=== PATIENT | male | born 1950 | race American Indian/Alaskan Native ===

== ENCOUNTER 2021-05-13 18:33 | Inpatient (IN) | payer MEDICARE ==
[2021-05-13] MEDS ORDERED: METOCLOPRAMIDE 10 MG/2 ML INJ IV ONE (19:22)
[2021-05-13] MEDS ORDERED: dexAMETHasone 4 MG/ML VIAL IV ONE (19:22)
--- NOTE | 2021-05-13 19:25 | Event Note ---
Date: 05/13/21 The patient was evaluated in the emergency department for symptoms described in the history of present illness. He/she was evaluated in the context of the global COVID-19 pandemic, which necessitated consideration that the patient might be at risk for infection with the virus that causes COVID-19. Institutional protocols and algorithms that pertain to the evaluation of patients at risk for COVID-19 are in a state of rapid change based on information released by regulatory bodies including the CDC and federal and state organizations. These policies and algorithms were followed during the patient's care in the emergency department. Please note that these policies, procedures and recommendations changed on a rapid basis. Medical screening examination note: The patient is a 71-year-old gentleman, who reports that he is vaccinated against COVID-19, who was referred to the emergency room by local urgent care center for hiccups and hypoxia. The patient denies physical pain. He is not quite sure as to the details of his past medical history. Obtain appropriate laboratory studies, EKG, chest x-ray of the chest, initiate isolation, start Reglan Decadron therapy empirically. Reassess after initial data points, patient to have detailed history and physical performed by provider
--- NOTE | 2021-05-13 19:53 | XRay Report ---
CHEST 2 VIEWS INDICATION / CLINICAL INFORMATION: Dyspnea. COMPARISON: None available. FINDINGS: SUPPORT DEVICES: None. HEART / MEDIASTINUM: No significant abnormality. LUNGS / PLEURA: Multiple peripheral patchy airspace opacities. No pneumothorax. ADDITIONAL FINDINGS: No significant additional findings. IMPRESSION: 1. Multiple peripheral patchy airspace opacities which can be seen with Covid pneumonia. Signer Name: Isai Pickett DO Signed: 05/13/2021 7:49 PM Workstation Name: [id number]
[2021-05-13 19:59] LABS: Basophils % (Auto) 0.3 % (0.0-1.8); Hematocrit 42.8 % (35.5-45.6); Hemoglobin 14.5 gm/dl (11.8-15.2); Lymphocytes # (Auto) 0.5 K/mm3 (1.2-5.4); Lymphocytes % (Auto) 11.1 % (13.4-35.0); Mean Corpuscular HGB Conc 34 % (32-34); Mean Corpuscular Volume 84 fl (84-94); Monocytes # (Auto) 0.6 K/mm3 (0.0-0.8); Monocytes % (Auto) 12.5 % (0.0-7.3); Platelet Count 109 K/mm3 (140-440); Red Blood Count 5.08 M/mm3 (3.65-5.03); Red Cell Distribution Width 14.4 % (13.2-15.2)
[2021-05-13 20:08] LABS: INR 0.96 (0.87-1.13)
[2021-05-13 20:28] LABS: Alanine Aminotransferase 82 units/L (7-56); Albumin 3.4 g/dL (3.9-5); BUN/Creatinine Ratio 16; Blood Urea Nitrogen 13 mg/dL (9-20); Calcium 9.1 mg/dL (8.4-10.2); Hemolysis Index 10
[2021-05-13] MEDS ORDERED: SODIUM CHLORIDE 0.9% 1000 ML 1,000 ML IV ONE (22:22)
[2021-05-13] MEDS ORDERED: cefTRIAXone/NS 1 GM/50 ML 1 GM/50 ML BAG IV ONE (22:23)
[2021-05-13] MEDS ORDERED: AZITHROMYCIN/NS 500 MG/250 ML 500 MG/250 ML BAG IV ONE (22:23)
[2021-05-13] MEDS ORDERED: ACETAMINOPHEN 500 MG TAB PO ONE (22:24)
--- NOTE | 2021-05-13 22:28 | Emergency Department Report ---
ED Shortness of Breath HPI - General Chief Complaint: Dyspnea/Respdistress Stated Complaint: OXYGEN Time Seen by Provider: 05/13/21 22:22 Source: patient Mode of arrival: Ambulatory Limitations: No Limitations - History of Present Illness Initial Comments: Patient is 71 years old male with history of hypertension. Patient presented to the ER after he was seen in urgent care for evaluation of hypoxia and shortness of breath. Patient stated that symptoms been going on for 2 to 3 days. Patient found to be febrile with temperature of 101. Patient stated that he received his first dose of moderate vaccine on May 09 approximately 4 days ago. 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 Patient denied any nausea or vomiting but he is complaining of hiccups. Patient found to be hypoxic with an oxygen saturation of 89% on room air improved to 94% on 3 L. MD Complaint: shortness of breath, cough -: days(s) (2) Context: recent URI - Related Data Allergies Allergy/AdvReac Type Severity Reaction Status Date / Time No Known Allergies Allergy Unverified 05/13/21 19:22 ED Review of Systems ROS: Stated complaint: OXYGEN Other details as noted in HPI Comment: All other systems reviewed and negative Constitutional: chills, fever Respiratory: cough, shortness of breath, SOB with exertion, SOB at rest Cardiovascular: denies: chest pain, palpitations Gastrointestinal: denies: abdominal pain, nausea, vomiting, diarrhea, constipation, hematemesis, melena Musculoskeletal: denies: back pain Neurological: denies: headache, weakness, numbness, paresthesias, confusion, abnormal gait ED Past Medical Hx - Past Medical History Previous Medical History?: No - Surgical History Past Surgical History?: No ED Physical Exam - General Limitations: No Limitations General appearance: alert, in no apparent distress - Head Head exam: Present: atraumatic, normocephalic, normal inspection - Eye Eye exam: Present: normal appearance - ENT ENT exam: Present: mucous membranes dry - Neck Neck exam: Present: normal inspection, full ROM. Absent: tenderness, menin gismus - Respiratory Respiratory exam: Present: rales. Absent: respiratory distress, accessory muscle use, decreased breath sounds, prolonged expiratory - Cardiovascular Cardiovascular Exam: Present: regular rate, normal rhythm, normal heart sounds - GI/Abdominal GI/Abdominal exam: Present: soft, normal bowel sounds. Absent: distended, tenderness, guarding, rebound, rigid, mass, bruit, pulsatile mass, hernia - Extremities Exam Extremities exam: Present: normal inspection, full ROM, normal capillary refill. Absent: tenderness, pedal edema, joint swelling, calf tenderness - Back Exam Back exam: Present: normal inspection, full ROM. Absent: CVA tenderness (R), CVA tenderness (L), muscle spasm, paraspinal tenderness, vertebral tenderness - Neurological Exam Neurological exam: Present: alert, oriented X3, CN II-XII intact, normal gait, reflexes normal. Absent: motor sensory deficit - Psychiatric Psychiatric exam: Present: normal mood - Skin Skin exam: Present: warm, intact, normal color ED Course Vital Signs 05/13/21 19:25 Temperature 101 F H Pulse Rate 91 H Respiratory 16 Rate Blood Pressure 140/91 [Right] O2 Sat by Pulse 94 Oximetry ED Medical Decision Making - Lab Data Result diagrams: 05/13/21 19:28 05/13/21 19:28 - Radiology Data Radiology results: report reviewed - Medical Decision Making Patient is 71 years old male with history of hypertension. Patient presented to the ER after he was seen in urgent care for evaluation of hypoxia and shortness of breath. Patient stated that symptoms been going on for 2 to 3 days. Patient found to be febrile with temperature of 101. Patient stated that he received his first dose of moderate vaccine on May 09 approximately 4 days ago. 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 Patient denied any nausea or vomiting but he is complaining of hiccups. Patient found to be hypoxic with an oxygen saturation of 89% on room air improved to 94% on 3 L Chest x-ray showed bilateral infiltrate concerning for Covid 19 pneumonia. Labs reviewed and is unremarkable except for elevated COVID-19 markers. Patient received Rocephin, Zithromax, Decadron and normal saline. I discussed the patient with Dr. Smith, he agreed to admit the patient to medical service for further management. Critical Care Time: Yes Critical care time in (mins) excluding proc time.: 30 Critical care attestation.: If time is entered above; I have spent that time in minutes in the direct care of this critically ill patient, excluding procedure time. ED Disposition Clinical Impression: Acute respiratory failure with hypoxia, Bilateral pneumonia, Suspected COVID-19 virus infection Disposition: ADMITTED INPATIENT Is pt being admited?: Yes Condition: Stable Instructions: Bacterial Pneumonia (ED)
[2021-05-13] MEDS ORDERED: ACETAMINOPHEN 325 MG TAB PO PRN (22:39)
[2021-05-13] MEDS ORDERED: ALBUTEROL 2.5 MG/3 ML NEBU IH PRN (22:39)
--- NOTE | 2021-05-13 22:47 | History and Physical Report ---
History of Present Illness Date of examination: 05/13/21 Date of admission: 05/13/21 Chief complaint: Shortness of breath History of present illness: 71 years old male with history of hypertension was brought to the emergency room from urgent care for evaluation of hypoxia and shortness of breath. Patient complained of shortness of breath for 2 to 3 days. Patient found to be febrile with temperature of 101. Patient stated that he received his first dose of mo derate vaccine on May 09 approximately 4 days ago. 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 Patient denied any nausea or vomiting but he is complaining of hiccups. Patient found to be hypoxic with an oxygen saturation of 89% on room air improved to 94% on 3 L. In the emergency room patient chest x-ray shows multi pole peripheral patchy airspace opacities which can be seen with Covid pneumonia. Going to admit the patient with diagnosis of Covid infection and Covid pneumonia. We consulted infectious disease for evaluation Med rec is not available at this time. Advance discharge process is initiated Past History Past Medical History: hypertension Medications and Allergies Allergies Allergy/AdvReac Type Severity Reaction Status Date / Time No Known Allergies Allergy Unverified 05/13/21 19:22 Active Meds: Active Medications Sodium Chloride (Nacl 0.9% 1000 Ml) 1,000 mls @ 250 mls/hr IV ONCE ONE Stop: 05/14/21 02:21 Azithromycin (Zithromax/Ns) 500 mg in 250 mls @ 250 mls/hr IV ONCE ONE; Protocol Stop: 05/13/21 23:22 Ceftriaxone Sodium (Rocephin/Ns 1 Gm/50 Ml) 1 gm in 50 mls @ 100 mls/hr IV ONCE ONE; Protocol Stop: 05/13/21 22:52 Review of Systems All systems: negative Cardiovascular: shortness of breath, dyspnea on exertion Respiratory: cough, shortness of breath, dyspnea on exertion Exam - Constitutional Vitals: Temp Pulse Resp BP Pulse Ox 101 F H 91 H 16 140/91 94 05/13/21 19:25 05/13/21 19:25 05/13/21 19:25 05/13/21 19:25 05/13/21 19:25 General appearance: Present: no acute distress, well-nourished - EENT Eyes: Present: PERRL ENT: hearing intact, clear oral mucosa - Neck Neck: Present: supple, normal ROM - Respiratory Respiratory effort: normal Respiratory: bilateral: diminished - Cardiovascular Heart Sounds: Present: S1 & S2. Absent: rub, click - Extremities Extremities: pulses symmetrical, No edema Peripheral Pulses: within normal limits - Abdominal General gastrointestinal: Present: soft, non-tender, non-distended, normal bowel sounds Male genitourinary: Present: normal - Integumentary Integumentary: Present: clear, warm, dry - Musculoskeletal Musculoskeletal: gait normal, strength equal bilaterally - Psychiatric Psychiatric: appropriate mood/affect, intact judgment & insight - Neurologic Neurologic: CNII-XII intact, moves all extremities HEART Score - HEART Score Troponin: Troponin T < 0.010 ng/mL (0.00-0.029) 05/13/21 19:28 Results - Labs CBC & Chem 7: 05/13/21 19:28 05/13/21 19:28 Labs: Laboratory Last Values WBC 4.6 K/mm3 (4.5-11.0) 05/13/21 19: RBC 5.08 M/mm3 (3.65-5.03) H 05/13/21 19:28 Hgb 14.5 gm/dl (11.8-15.2) 05/13/21 19: Hct 42.8 % (35.5-45.6) 05/13/21 19: MCV 84 fl (84-94) 05/13/21 19: MCH 29 pg (28-32) 05/13/21 19:28 MCHC 34 % (32-34) 05/13/21 19: RDW 14.4 % (13.2-15.2) 05/13/21 19:28 Plt Count 109 K/mm3 (140-440) L 05/13/21 19:28 Lymph % (Auto) 11.1 % (13.4-35.0) L 05/13/21 19: [place] % (Auto) 12.5 % (0.0-7.3) H 05/13/21 19:28 Eos % (Auto) 0.0 % (0.0-4.3) 05/13/21 19: Baso % (Auto) 0.3 % (0.0-1.8) 05/13/21 19: Lymph # (Auto) 0.5 K/mm3 (1.2-5.4) L 05/13/21 19:28 [place] # (Auto) 0.6 K/mm3 (0.0-0.8) 05/13/21 19: Eos # (Auto) 0.0 K/mm3 (0.0-0.4) 05/13/21 19:28 Baso # (Auto) 0.0 K/mm3 (0.0-0.1) 05/13/21 19: Seg Neutrophils % 76.1 % (40.0-70.0) H 05/13/21 19:28 Seg Neutrophils # 3.5 K/mm3 (1.8-7.7) 05/13/21 19: PT 13.3 Sec. (12.2-14.9) 05/13/21: INR 0.96 (0.87-1.13) 05/13/21 19:28 D-Dimer 966.69 ng/mlDDU (0-234) H 05/13/21 19:28 Sodium 134 mmol/L (137-145) L 05/13/21 19:28 Potassium 3.7 mmol/L (3.6-5.0) 05/13/21 19: Chloride 97.9 mmol/L (98-107) L 05/13/21 19: Carbon Dioxide 30 mmol/L (22-30) 05/13/21 19: Anion Gap 10 mmol/L 05/13/21 19: BUN 13 mg/dL (9-20) 05/13/21 19: Creatinine 0.8 mg/dL (0.8-1.3) 05/13/21 19: Estimated GFR > 60 ml/min 05/13/21 19:28 BUN/Creatinine Ratio 16 % 05/13/21 19: Glucose 132 mg/dL (75-100) H 05/13/21 19:28 Lactic Acid 1.40 mmol/L (0.7-2.0) 05/13/21 19: Calcium 9.1 mg/dL (8.4-10.2) 05/13/21 19: Magnesium 2.20 mg/dL (1.7-2.3) 05/13/21 19:28 Ferritin 1812.0 ng/mL (30.0-300.0) H 05/13/21 19:28 Total Bilirubin 0.60 mg/dL (0.1-1.2) 05/13/21 19:28 AST 102 units/L (5-40) H 05/13/21 19:28 ALT 82 units/L (7-56) H 05/13/21 19:28 Alkaline Phosphatase 70 units/L (35-129) 05/13/21 19:28 Lactate Dehydrogenase 500 units/L (91-180) H 05/13/21 19:28 Total Creatine Kinase 312 units/L (55-170) H 05/13/21 19:28 Troponin T < 0.010 ng/mL (0.00-0.029) 05/13/21 19:28 C-Reactive Protein 9.50 mg/dL (0.00-1.30) H 05/13/21 19:28 Total Protein 7.9 g/dL (6.3-8.2) 05/13/21 19:28 Albumin 3.4 g/dL (3.9-5) L 05/13/21 19:28 Albumin/Globulin Ratio 0.8 % 05/13/21 19:28 - Imaging and Cardiology Chest x-ray: report reviewed Assessment and Plan VTE prophylaxis?: Chemical Plan of care discussed with patient/family: Yes - Patient Problems (1) Acute respiratory failure with hypoxia Status: Acute Plan to address problem: Admit the patient to the medical telemetry. Oxygen per nasal cannula 3 L/min. DuoNeb by nebulizer every 4 hours. Dexamethasone 6 mg IV daily. Rocephin 2 g IV daily and Zithromax 500 mg IV daily. We do the blood culture and sputum culture. We will follow Covid PCR and Covid inflammatory marker. Reconsult infectious disease for evaluation. Consult pulmonary if needed (2) Bilateral pneumonia Status: Acute Plan to address problem: Oxygen per nasal cannula 3 L/min. DuoNeb by nebulizer every 4 hours. Dexamethasone 6 mg IV daily. Rocephin 2 g IV daily and Zithromax 500 mg IV daily. We do the blood culture and sputum culture. Recheck CBC BMP in the morning (3) Suspected COVID-19 virus infection Status: Acute Plan to address problem: Oxygen per nasal cannula 3 L/min. DuoNeb by nebulizer every 4 hours. Dexamethasone 6 mg IV daily. Rocephin 2 g IV daily and Zithromax 500 mg IV daily. We do the blood culture and sputum culture. We will follow Covid PCR and Covid inflammatory marker. Reconsult infectious disease for evaluation. Consult pulmonary if needed (4) Hypertension Status: Acute Plan to address problem: Hydralazine 10 mg IV every 6 hours as needed. We will monitor the blood pressure closely (5) DVT prophylaxis Status: Acute Plan to address problem: Heparin 5000 units subcu every 8 hours for DVT prophylaxis. Pepcid 20 mg p.o. twice daily for GI prophylaxis. Patient is a full code
[2021-05-14 04:53] LABS: BUN/Creatinine Ratio 13; Blood Urea Nitrogen 12 mg/dL (9-20); Calcium 8.5 mg/dL (8.4-10.2); Hemolysis Index 4
[2021-05-14] MEDS: IPRATROPIUM/ALBUTEROL SULFATE 3 ML AMPUL.NEB IH SCH ×4 (05:57→22:47)
[2021-05-14] MEDS: HEPARIN 5,000 UNIT/1 ML VIAL SUB-Q SCH ×2 (07:05→22:50)
--- NOTE | 2021-05-14 08:49 | Consultation ---
History of Present Illness - Reason for Consult Consult date: 05/14/21 covid - History of Present Illness 71-year-old male with history of hypertension, obesity, admitted on 05/13/2021 secondary to 3-day history of cough, fever, chills, malaise, hiccups and shortness of breath. Patient was evaluated at an urgent care facility was found hypoxic. Of note, patient received first dose of Moderna vaccine on 05/09/2021. Patient is exposed to many people at work. On arrival, temperature 101, HR 91, RR 16, O2 sat 94%, 140/91. Platelets 109. D-dimer 966. Ferritin 8012. CRP 9.5. AST 102. ALT 82. Dropped to 89% on room air, placed on 3 L. Chest x-ray with multifocal peripheral patchy airspace disease. Review of Systems: reviewed ED and H&P notes. Review of system deferred to minimize COVID-19 transmission. Past History Past Medical History: hypertension Medications and Allergies Allergies Allergy/AdvReac Type Severity Reaction Status Date / Time No Known Allergies Allergy Unverified 05/13/21 19:22 Active Meds: Active Medications Acetaminophen (Acetaminophen 325 Mg Tab) 650 mg PO Q4H PRN PRN Reason: Pain MILD(1-3)/Fever >100.5/TYLER Albuterol (Albuterol 2.5 Mg/3 Ml Nebu) 2.5 mg IH Q4HRT PRN PRN Reason: Shortness Of Breath Albuterol/Ipratropium (Ipratropium/Albuterol Sulfate 3 Ml Ampul.Neb) 1 ampul IH Q6HRT [facility] Last Admin: 05/14/21 05:57 Dose: Not Given Documented by: Dexamethasone (Dexamethasone 4 Mg/Ml Vial) 6 mg IV DAILY [facility] Stop: 05/23/21 10:01 Famotidine (Famotidine 20 Mg Tab) 20 mg PO BID [facility] Heparin Sodium (Porcine) (Heparin 5,000 Unit/1 Ml Vial) 5,000 unit SUB-Q Q8HR [facility] Last Admin: 05/14/21 07:05 Dose: 5,000 unit Documented by: Hydralazine HCl (Hydralazine 20 Mg/1 Ml Inj) 10 mg IV Q6H PRN PRN Reason: Blood Pressure Hydromorphone HCl (Hydromorphone 1 Mg/1 Ml Inj) 0.5 mg IV Q3H PRN PRN Reason: Pain , Severe (7-10) Ceftriaxone Sodium (Rocephin/Ns 2 Gm/100 Ml) 2 gm in 100 mls @ 200 mls/hr IV Q24HR [facility]; Protocol Stop: 05/17/21 10:29 Azithromycin (Zithromax/Ns) 500 mg in 250 mls @ 250 mls/hr IV Q24HR [facility]; Protocol Stop: 05/17/21 10:59 Ondansetron HCl (Ondansetron 4 Mg/2 Ml Inj) 4 mg IV Q8H PRN PRN Reason: Nausea And Vomiting Oxycodone/Acetaminophen (Oxycodone /Acetaminophen 5-325mg Tab) 1 tab PO Q6H PRN PRN Reason: Pain, Moderate (4-6) Physical Examination - Physical Exam Narrative exam: Physical exam deferred to minimize COVID-19 transmission during pandemic. - Constitutional Vitals: Vital Signs Temp Pulse Resp BP Pulse Ox 101.0 F H 85 23 164/86 91 05/13/21 19:25 05/14/21 07:45 05/14/21 07:45 05/14/21 08:15 05/14/21 08:15 Temperature -Last 24 Hours Temperature 101.0 F Temperature 101 F Results - Labs CBC & Chem 7: 05/13/21 19:28 05/14/21 04:14 Labs: Abnormal lab results 05/13/21 05/13/21 05/13/21 Range/Units 19:28 19:28 19:28 RBC 5.08 H (3.65-5.03) M/mm3 Plt Count 109 L (140-440) K/mm3 Lymph % (Auto) 11.1 L (13.4-35.0) % [place] % (Auto) 12.5 H (0.0-7.3) % Lymph # (Auto) 0.5 L (1.2-5.4) K/mm3 Seg Neutrophils % 76.1 H (40.0-70.0) % D-Dimer 966.69 H (0-234) ng/mlDDU Sodium 134 L (137-145) mmol/L Potassium (3.6-5.0) mmol/L Chloride 97.9 L (98-107) mmol/L Glucose 132 H (75-100) mg/dL Ferritin (30.0-300.0) ng/mL AST 102 H (5-40) units/L ALT 82 H (7-56) units/L Lactate Dehydrogenase 500 H (91-180) units/L Total Creatine Kinase 312 H (55-170) units/L C-Reactive Protein 9.50 H (0.00-1.30) mg/dL Albumin 3.4 L (3.9-5) g/dL 05/13/21 05/14/21 Range/Units 19:28 04:14 RBC (3.65-5.03) M/mm3 Plt Count (140-440) K/mm3 Lymph % (Auto) (13.4-35.0) % [place] % (Auto) (0.0-7.3) % Lymph # (Auto) (1.2-5.4) K/mm3 Seg Neutrophils % (40.0-70.0) % D-Dimer (0-234) ng/mlDDU Sodium (137-145) mmol/L Potassium 3.5 L (3.6-5.0) mmol/L Chloride (98-107) mmol/L Glucose 133 H (75-100) mg/dL Ferritin 1812.0 H (30.0-300.0) ng/mL AST (5-40) units/L ALT (7-56) units/L Lactate Dehydrogenase (91-180) units/L Total Creatine Kinase (55-170) units/L C-Reactive Protein (0.00-1.30) mg/dL Albumin (3.9-5) g/dL Assessment and Plan Cultures: SARS CoV2 PCR pending Assessment: 71-year-old male with history of hypertension, obesity, admitted on 05/13/2021 secondary to 3-day history of cough, fever, chills, malaise, hiccups and shortness of breath, received first dose of Moderna vaccine on 05/09/2021: #Sepsis: Present on admission with fever, tachycardia, hypoxia, likely secondary to bilateral pneumonia. #Suspect COVID pneumonia: SARS PCR pending. CXR with multifocal bilateral pneumonia. Infllammatory markers elevated. D-dimer 966. Ferritin 8012. CRP 9 .5. #Acute hypoxemic respiratory failure: Sats Dropped to 89% on room air, placed on 3 L. #Elevated LFTs: from COVID, AST 102. ALT 82. Recommendations: -Follow-up SARS-CoV-2 PCR -Continue Dexamethasone 6 mg IV/PO daily for 10 days -Once SARS-CoV-2 PCR positive will consider starting Remdesivir for 5 days if patient is on oxygen supplementation -Monitor inflammatory markers - ferritin, Ddimer, CRP, LDH -Check procalcitonin -Continue anticoagulation per System Protocol -Prone positioning as possible -Stop ceftriaxone and azithromycin, if procalcitonin <0.25 ng/mL All laboratory, cultures and imaging were reviewed. Will follow Lilia Chau MD Infectious Diseases Physical Chemist [facility] M [phone] O [phone]
[2021-05-14] MEDS ORDERED: cefTRIAXone/NS 2 GM/100 ML 2 GM/100 ML BAG IV SCH (10:00)
[2021-05-14] MEDS ORDERED: AZITHROMYCIN/NS 500 MG/250 ML 500 MG/250 ML BAG IV SCH (10:00)
[2021-05-14] MEDS: dexAMETHasone 4 MG/ML VIAL IV SCH (11:15)
[2021-05-14] MEDS: FAMOTIDINE 20 MG TAB PO SCH ×2 (11:16→22:49)
--- NOTE | 2021-05-14 14:25 | Progress Note ---
Assessment and Plan Assessment and plan: -- Acute respiratory failure with hypoxia Status: Acute Patient is on supplemental oxygen per nasal cannula 3 L-4 /min. Continue DuoNeb by nebulizer every 4 hours. Dexamethasone 6 mg IV daily. Rocephin 2 g IV daily and Zithromax 500 mg IV daily. Follow blood cultures Covid PCR test pending and elevated Covid inflammatory marker. Pulmonary following --Bilateral pneumonia Status: Acute Possible community-acquired pneumonia versus Covid pneumonia Empiric antibiotics Rocephin and Zithromax, check procalcitonin levels If normal DC antibiotics, follow cultures --PUI/ suspected COVID-19 virus infection Status: Acute Contact and droplet isolation, dexamethasone 6 mg IV daily. Follow springer PCR test report , check inflammatory markers ID evaluation noted, remdesivir if COVID-19 test is positive Oxygen titrate , and wean as needed Home O2 evaluation prior to discharge Prone position as needed, pulmonary as needed -- Hypertension/moderate control Status: Acute Continue current antihypertensives As needed hydralazine --Obesity; BMI 38.4 Status: Chronic Patient needs diet modification, lifestyle changes, exercise as tolerated and weight reduction When medically stable --DVT prophylaxis; Status: Acute Subcu Heparin 5000 units subcu every 8 hours . We will closely monitor the patient and adjust management as needed Licensed Occupational Therapy Assistant recommendations noted and appreciated Plan of care reviewed with the patient and his nurse Brief history and daily hospital course: 74-year-old -[place] male patient was admitted with shortness of breath, hypoxic respiratory failure Requiring supplemental oxygen, high suspicion for COVID-19: A PCR test is pending 05/17/2021; Follow springer PCR test 38 oxygen to more than 90% Wean as toleratedID following Consider pulmonary evaluation if needed History Interval history: I have seen and examined the patient this morning in ER room 25 awaiting room assignment Isolation precautions PPE protocols followed Patient is in mild distress on 4 L of nasal cannula oxygen Complains of generalized weakness and shortness of breath Hospitalist Physical - Constitutional Vitals: Temp Pulse Resp BP Pulse Ox 101.0 F H 73 31 H 122/73 93 05/13/21 19:25 05/14/21 13:15 05/14/21 13:15 05/14/21 13:15 05/14/21 13:15 General appearance: Present: mild distress, well-nourished, obese - EENT Eyes: Present: PERRL, EOM intact - Neck Neck: Present: supple, normal ROM - Respiratory Respiratory effort: other (Mild hypoxia) Respiratory: bilateral: diminished, rhonchi, negative: rales, wheezing - Cardiovascular Rhythm: regular Heart Sounds: Present: S1 & S2 - Extremities Extremities: no ischemia, No edema - Abdominal General gastrointestinal: soft, non-tender, non-distended, normal bowel sounds - Integumentary Integumentary: Present: clear, warm - Psychiatric Psychiatric: appropriate mood/affect, cooperative - Neurologic Neurologic: CNII-XII intact, moves all extremities HEART Score - HEART Score Troponin: Troponin T < 0.010 ng/mL (0.00-0.029) 05/13/21 19:28 Results - Labs CBC & Chem 7: 05/13/21 19:28 05/14/21 04:14 Labs: Laboratory Last Values WBC 4.6 K/mm3 (4.5-11.0) 05/13/21 19: RBC 5.08 M/mm3 (3.65-5.03) H 05/13/21 19:28 Hgb 14.5 gm/dl (11.8-15.2) 05/13/21 19:28 Hct 42.8 % (35.5-45.6) 05/13/21 19:28 MCV 84 fl (84-94) 05/13/21 19:28 MCH 29 pg (28-32) 05/13/21 19:28 MCHC 34 % (32-34) 05/13/21 19:28 RDW 14.4 % (13.2-15.2) 05/13/21 19:28 Plt Count 109 K/mm3 (140-440) L 05/13/21 19:28 Lymph % (Auto) 11.1 % (13.4-35.0) L 05/13/21 19:28 [place] % (Auto) 12.5 % (0.0-7.3) H 05/13/21 19:28 Eos % (Auto) 0.0 % (0.0-4.3) 05/13/21 19:28 Baso % (Auto) 0.3 % (0.0-1.8) 05/13/21 19:28 Lymph # (Auto) 0.5 K/mm3 (1.2-5.4) L 05/13/21 19:28 [place] # (Auto) 0.6 K/mm3 (0.0-0.8) 05/13/21 19:28 Eos # (Auto) 0.0 K/mm3 (0.0-0.4) 05/13/21 19:28 Baso # (Auto) 0.0 K/mm3 (0.0-0.1) 05/13/21 19:28 Seg Neutrophils % 76.1 % (40.0-70.0) H 05/13/21 19:28 Seg Neutrophils # 3.5 K/mm3 (1.8-7.7) 05/13/21 19:28 PT 13.3 Sec. (12.2-14.9) 05/13/21 19: INR 0.96 (0.87-1.13) 05/13/21 19:28 D-Dimer 966.69 ng/mlDDU (0-234) H 05/13/21 19:28 Sodium 137 mmol/L (137-145) 05/14/21 04:14 Potassium 3.5 mmol/L (3.6-5.0) L 05/14/21 04:14 Chloride 99.7 mmol/L (98-107) 05/14/21 04:14 Carbon Dioxide 24 mmol/L (22-30) 05/14/21 04:14 Anion Gap 17 mmol/L 05/14/21 04:14 BUN 12 mg/dL (9-20) 05/14/21 04:14 Creatinine 0.9 mg/dL (0.8-1.3) 05/14/21 04:14 Estimated GFR > 60 ml/min 05/14/21 04:14 BUN/Creatinine Ratio 13 % 05/14/21 04:14 Glucose 133 mg/dL (75-100) H 05/14/21 04:14 Lactic Acid 1.40 mmol/L (0.7-2.0) 05/13/21 19:28 Calcium 8.5 mg/dL (8.4-10.2) 05/14/21 04:14 Magnesium 2.20 mg/dL (1.7-2.3) 05/13/21 19:28 Ferritin 1812.0 ng/mL (30.0-300.0) H 05/13/21 19:28 Total Bilirubin 0.60 mg/dL (0.1-1.2) 05/13/21 19:28 AST 102 units/L (5-40) H 05/13/21 19:28 ALT 82 units/L (7-56) H 05/13/21 19:28 Alkaline Phosphatase 70 units/L (35-129) 05/13/21 19:28 Lactate Dehydrogenase 500 units/L (91-180) H 05/13/21 19:28 Total Creatine Kinase 312 units/L (55-170) H 05/13/21 19:28 Troponin T < 0.010 ng/mL (0.00-0.029) 05/13/21 19:28 C-Reactive Protein 9.50 mg/dL (0.00-1.30) H 05/13/21 19:28 Total Protein 7.9 g/dL (6.3-8.2) 05/13/21 19:28 Albumin 3.4 g/dL (3.9-5) L 05/13/21 19:28 Albumin/Globulin Ratio 0.8 % 05/13/21 19:28 Procalcitonin < 0.05 ng/mL (<0.15) 05/13/21 19:28 Active Medications - Current Medications Current Medications: Generic Name Dose Route Start Last Admin Trade Name Freq PRN Reason Stop Dose Admin Acetaminophen 650 mg 05/13/21 22:39 05/14/21 11:16 Acetaminophen 325 Mg Tab PO 650 mg Q4H PRN Administration Pain MILD(1-3)/Fever >100.5/TYLER Albuterol 2.5 mg 05/13/21 22:39 Albuterol 2.5 Mg/3 Ml Nebu IH Q4HRT PRN Shortness Of Breath Albuterol/Ipratropium 1 ampul 05/14/21 02:00 05/14/21 11:15 Ipratropium/Albuterol Sulfate 3 Ml Ampul.Neb IH Not Given Q6HRT EVELYN Dexamethasone 6 mg 05/14/21 10:00 05/14/21 11:15 Dexamethasone 4 Mg/Ml Vial IV 05/23/21 10:01 6 mg DAILY EVELYN Administration Famotidine 20 mg 05/14/21 10:00 05/14/21 11:16 Famotidine 20 Mg Tab PO 20 mg BID EVELYN Administration Heparin Sodium (Porcine) 5,000 unit 05/14/21 06:00 05/14/21 07:05 Heparin 5,000 Unit/1 Ml Vial SUB-Q 5,000 unit Q8HR EVELYN Administration Hydralazine HCl 10 mg 05/13/21 22:42 Hydralazine 20 Mg/1 Ml Inj IV Q6H PRN Blood Pressure Hydromorphone HCl 0.5 mg 05/13/21 22:39 Hydromorphone 1 Mg/1 Ml Inj IV Q3H PRN Pain , Severe (7-10) Ceftriaxone Sodium 2 gm in 100 mls @ 200 mls/hr 05/14/21 10:00 05/14/21 11:16 Rocephin/Ns 2 Gm/100 Ml IV 05/17/21 10:29 200 mls/hr Q24HR EVELYN Administration Protocol Azithromycin 500 mg in 250 mls @ 250 mls/hr 05/14/21 10:00 05/14/21 11:16 Zithromax/Ns IV 05/17/21 10:59 250 mls/hr Q24HR EVELYN Administration Protocol Ondansetron HCl 4 mg 05/13/21 22:39 Ondansetron 4 Mg/2 Ml Inj IV Q8H PRN Nausea And Vomiting Oxycodone/Acetaminophen 1 tab 05/13/21 22:39 Oxycodone /Acetaminophen 5-325mg Tab PO Q6H PRN Pain, Moderate (4-6)
[2021-05-14] MEDS ORDERED: POTASSIUM CHLORIDE ER 10 MEQ TAB PO ONE (20:00)
--- NOTE | 2021-05-14 20:20 | Vascular Lab Report ---
DUPLEX DOPPLER LOWER EXTREMITY VEINS, BILATERAL INDICATION / CLINICAL INFORMATION: Covid/elevated D-dimers/hypoxia/rule out DVT. TECHNIQUE: Duplex doppler imaging was performed through the veins of both lower extremities using venous zhou salvador and other maneuvers. COMPARISON: None available. FINDINGS: RIGHT COMMON FEMORAL VEIN: Negative. RIGHT FEMORAL VEIN: Negative. RIGHT POPLITEAL VEIN: Negative. RIGHT CALF VEINS: Negative. LEFT COMMON FEMORAL VEIN: Negative. LEFT FEMORAL VEIN: Negative. LEFT POPLITEAL VEIN: Negative. LEFT CALF VEINS: Negative. ADDITIONAL FINDINGS: None. IMPRESSION: 1. No sonographic evidence for DVT in either lower extremity. Signer Name: Isaiah Yoder MD Signed: 05/14/2021 8:16 PM Workstation Name: [id number]
[2021-05-14 20:42] LABS: Alanine Aminotransferase 111 units/L (7-56); Blood Urea Nitrogen 12 mg/dL (9-20); Calcium 8.8 mg/dL (8.4-10.2); Hemolysis Index 2
[2021-05-14 20:49] LABS: BUN/Creatinine Ratio 17
[2021-05-14] MEDS ORDERED: REMDESIVIR 200 MG in SODIUM CHLORIDE 0.9% 250ML 250 ML IV ONE (21:00)
--- NOTE | 2021-05-14 22:38 | Cat Scan Report ---
CTA CHEST WITH CONTRAST INDICATION / CLINICAL INFORMATION: Covid-19 / Hypoxia / elevated D-dimer. TECHNIQUE: Axial CT images were obtained through the chest after injection of 100 cc of Omnipaque 350 IV contrast. 3 plane MIP and/or 3D reconstructions were produced. All CT scans at this location are performed using CT dose reduction for ALARA by means of automated exposure control. COMPARISON: None available. FINDINGS: PULMONARY ARTERIES: No central or segmental pulmonary embolus. THORACIC AORTA: No significant abnormality. HEART: There is cardiac enlargement. No pericardial effusion. ADENOPATHY: No significant adenopathy. LUNGS/PLEURA: Moderately severe multifocal pulmonary airspace consolidation. No pleural effusion. No pneumothorax. ADDITIONAL FINDINGS: None. UPPER ABDOMEN: Cholelithiasis. No evidence of cholecystitis. No acute findings. SKELETAL STRUCTURES: No significant osseous abnormality. IMPRESSION: 1. No evidence of pulmonary embolus. 2. Multifocal pulmonary airspace disease, in keeping with reported history of COVID. Signer Name: Yassine Alcazar MD Signed: 05/14/2021 10:33 PM Workstation Name: [email or web address][id number]
[2021-05-14] MEDS: SODIUM CHLORIDE 0.9% 50 ML IVPB IV SCH (23:20)
[2021-05-15] MEDS: IPRATROPIUM/ALBUTEROL SULFATE 3 ML AMPUL.NEB IH SCH ×3 (03:17→21:21)
[2021-05-15] MEDS: hydrALAZINE 20 MG/1 ML INJ IV PRN (07:43)
[2021-05-15] MEDS: HEPARIN 5,000 UNIT/1 ML VIAL SUB-Q SCH ×3 (07:44→14:46)
[2021-05-15 08:30] LABS: Alanine Aminotransferase 97 units/L (7-56); Albumin 3.2 g/dL (3.9-5); Blood Urea Nitrogen 11 mg/dL (9-20); Calcium 9.1 mg/dL (8.4-10.2); Hemolysis Index 4
[2021-05-15 08:33] LABS: BUN/Creatinine Ratio 16
[2021-05-15] MEDS: FAMOTIDINE 20 MG TAB PO SCH ×2 (09:18→22:30)
[2021-05-15] MEDS: dexAMETHasone 4 MG/ML VIAL IV SCH ×2 (09:18→14:46)
--- NOTE | 2021-05-15 09:19 | Progress Note ---
Assessment and Plan Assessment and plan: -- Acute respiratory failure with hypoxia Status: Acute Due to COVID-19 pneumonia patient is requiring 40 L high flow nasal cannula oxygen/100% nonrebreather today Due to worsening hypoxia, ID increased dexamethasone dose to 8 mg daily And remdesivir per guidelines Continue DuoNeb by nebulizer every 4 hours. Prone position as much as possible Consult pulmonary if needed --Bilateral pneumonia Status: Acute Possible community-acquired pneumonia versus Covid pneumonia Empiric antibiotics Rocephin and Zithromax, check procalcitonin levels If normal DC antibiotics, follow cultures -- COVID-19 virus infection Status: Acute Contact and droplet isolation, dexamethasone 6 mg IV daily. And remdesivir ,check inflammatory markers ID evaluation noted, Patient is on 10 L of nasal cannula oxygen Wean as tolerated, home O2 evaluation prior to discharge Prone position as needed, pulmonary as needed. --Elevated D-dimers; worsening D-dimers CTA chest negative for PE Lower extremity venous Doppler negative for DVT However due to increase oxygen requirement Empirically will treat with therapeutic dose of Lovenox Closely monitor, checked with the pharmacy We will closely monitor platelets, or any evidence of bleeding -- Hypertension/moderate control Status: Acute Continue current antihypertensives As needed hydralazine --Obesity; BMI 38.4 Status: Chronic Patient needs diet modification, lifestyle changes, exercise as tolerated and weight reduction When medically stable --DVT prophylaxis; Status: Acute Subcu Heparin 5000 units subcu every 8 hours . We will closely monitor the patient and adjust management as needed Surveillance Director recommendations noted and appreciated Plan of care reviewed with the patient and his nurse Brief history and daily hospital course: 74-year-old -[place] male patient was admitted with shortness of breath, hypoxic respiratory failure Requiring supplemental oxygen, high suspicion for COVID-19: A PCR test is pending 05/14/2021; Follow springer PCR test 38 oxygen to more than 90% Wean as toleratedID following Consider pulmonary evaluation if needed 05/15/2021; Patient tested positive for COVID-19 Increased dose of dexamethasone to 8 mg, remdesivir per protocol Worsening D-dimers, negative PE, negative DVT Sudden increased requirement of oxygen 40 L high flow nasal cannula 100% FiO2 I discussed with pharmacist, will start therapeutic dose of Lovenox History Interval history: I have seen and examined the patient at the bedside today Isolation precautions PPE protocols followed patient is severely hypoxemic requiring 10 L of nasal cannula oxygen Vital signs noted Hospitalist Physical - Constitutional Vitals: Temp Pulse Resp BP Pulse Ox 98.9 F 66 19 173/99 85 05/15/21 07:31 05/15/21 07:47 05/15/21 07:47 05/15/21 07:31 05/15/21 07:47 General appearance: Present: mild distress, well-nourished, obese - EENT Eyes: Present: PERRL, EOM intact - Neck Neck: Present: normal ROM - Respiratory Respiratory effort: labored Respiratory: bilateral: diminished, rhonchi, negative: rales, wheezing - Cardiovascular Rhythm: regular Heart Sounds: Present: S1 & S2 - Extremities Extremities: no ischemia, No edema - Abdominal General gastrointestinal: soft, non-tender, non-distended, normal bowel sounds - Integumentary Integumentary: Present: clear, warm - Psychiatric Psychiatric: appropriate mood/affect, cooperative - Neurologic Neurologic: moves all extremities HEART Score - HEART Score Troponin: Troponin T < 0.010 ng/mL (0.00-0.029) 05/13/21 19:28 Results - Labs CBC & Chem 7: 05/13/21 19:28 05/15/21 07:08 Labs: Laboratory Last Values WBC 4.6 K/mm3 (4.5-11.0) 05/13/21 19:28 RBC 5.08 M/mm3 (3.65-5.03) H 05/13/21 19:28 Hgb 14.5 gm/dl (11.8-15.2) 05/13/21 19:28 Hct 42.8 % (35.5-45.6) 05/13/21 19:28 MCV 84 fl (84-94) 05/13/21 19:28 MCH 29 pg (28-32) 05/13/21 19:28 MCHC 34 % (32-34) 05/13/21 19:28 RDW 14.4 % (13.2-15.2) 05/13/21 19:28 Plt Count 109 K/mm3 (140-440) L 05/13/21 19:28 Lymph % (Auto) 11.1 % (13.4-35.0) L 05/13/21 19:28 Walsh % (Auto) 12.5 % (0.0-7.3) H 05/13/21 19:28 Eos % (Auto) 0.0 % (0.0-4.3) 05/13/21 19:28 Baso % (Auto) 0.3 % (0.0-1.8) 05/13/21 19:28 Lymph # (Auto) 0.5 K/mm3 (1.2-5.4) L 05/13/21 19:28 [place] # (Auto) 0.6 K/mm3 (0.0-0.8) 05/13/21 19:28 Eos # (Auto) 0.0 K/mm3 (0.0-0.4) 05/13/21 19:28 Baso # (Auto) 0.0 K/mm3 (0.0-0.1) 05/13/21 19:28 Seg Neutrophils % 76.1 % (40.0-70.0) H 05/13/21 19:28 Seg Neutrophils # 3.5 K/mm3 (1.8-7.7) 05/13/21 19:28 PT 13.3 Sec. (12.2-14.9) 05/13/21 19:28 INR 0.96 (0.87-1.13) 05/13/21 19:28 D-Dimer 966.69 ng/mlDDU (0-234) H 05/13/21 19:28 Sodium 138 mmol/L (137-145) 05/15/21 07:08 Potassium 4.0 mmol/L (3.6-5.0) 05/15/21 07:08 Chloride 100.3 mmol/L (98-107) 05/15/21 07:08 Carbon Dioxide 26 mmol/L (22-30) 05/15/21 07:08 Anion Gap 16 mmol/L 05/15/21 07:08 BUN 11 mg/dL (9-20) 05/15/21 07:08 Creatinine 0.7 mg/dL (0.8-1.3) L 05/15/21 07:08 Estimated GFR > 60 ml/min 05/15/21 07:08 BUN/Creatinine Ratio 16 % 05/15/21 07:08 Glucose 190 mg/dL (75-100) H 05/15/21 07:08 Lactic Acid 1.40 mmol/L (0.7-2.0) 09/21/21 19:28 Calcium 9.1 mg/dL (8.4-10.2) 05/15/21 07:08 Magnesium 2.20 mg/dL (1.7-2.3) 05/13/21 19:28 Ferritin 1812.0 ng/mL (30.0-300.0) H 05/13/21 19:28 Total Bilirubin 0.30 mg/dL (0.1-1.2) 05/15/21 07:08 AST 89 units/L (5-40) H 05/15/21 07:08 ALT 97 units/L (7-56) H 05/15/21 07:08 Alkaline Phosphatase 77 units/L (35-129) 05/15/21 07:08 Lactate Dehydrogenase 500 units/L (91-180) H 05/13/21 19:28 Total Creatine Kinase 312 units/L (55-170) H 05/13/21 19:28 Troponin T < 0.010 ng/mL (0.00-0.029) 05/13/21 19:28 C-Reactive Protein 9.50 mg/dL (0.00-1.30) H 05/13/21 19:28 Total Protein 7.4 g/dL (6.3-8.2) 05/15/21 07:08 Albumin 3.2 g/dL (3.9-5) L 05/15/21 07:08 Albumin/Globulin Ratio 0.8 % 05/15/21 07:08 Procalcitonin < 0.05 ng/mL (<0.15) 05/13/21 19:28 Coronavirus (PCR) Positive (Negative) A 05/14/21 08:30 Hooper/IV: Voiding Method Urinal Active Medications - Current Medications Current Medications: Generic Name Dose Route Start Last Admin Trade Name Freq PRN Reason Stop Dose Admin Acetaminophen 650 mg 05/13/21 22:39 05/14/21 11:16 Acetaminophen 325 Mg Tab PO 650 mg Q4H PRN Administration Pain MILD(1-3)/Fever >100.5/TYLER Albuterol 2.5 mg 05/13/21 22:39 Albuterol 2.5 Mg/3 Ml Nebu IH Q4HRT PRN Shortness Of Breath Albuterol/Ipratropium 1 ampul 05/14/21 02:00 05/15/21 03:17 Ipratropium/Albuterol Sulfate 3 Ml Ampul.Neb IH Not Given Q6HRT EVELYN Chlorpromazine HCl 10 mg 05/15/21 08:28 Chlorpromazine 10 Mg Tab PO Q6H PRN Hiccups Dexamethasone 6 mg 05/14/21 10:00 05/14/21 11:15 Dexamethasone 4 Mg/Ml Vial IV 05/23/21 10:01 6 mg DAILY EVELYN Administration Famotidine 20 mg 05/14/21 10:00 05/14/21 22:49 Famotidine 20 Mg Tab PO 20 mg BID EVELYN Administration Heparin Sodium (Porcine) 5,000 unit 05/14/21 06:00 05/15/21 07:44 Heparin 5,000 Unit/1 Ml Vial SUB-Q 5,000 unit Q8HR EVELYN Administration Hydralazine HCl 10 mg 05/13/21 22:42 05/15/21 07:43 Hydralazine 20 Mg/1 Ml Inj IV 10 mg Q6H PRN Administration Blood Pressure Hydromorphone HCl 0.5 mg 05/13/21 22:39 Hydromorphone 1 Mg/1 Ml Inj IV Q3H PRN Pain , Severe (7-10) REMDESIVIR 100 mg/ Sodium 250 mls @ 500 mls/hr 05/15/21 21:00 Chloride IV 05/18/21 21:29 Q24HR@2100 EVELYN Ondansetron HCl 4 mg 05/13/21 22:39 Ondansetron 4 Mg/2 Ml Inj IV Q8H PRN Nausea And Vomiting Oxycodone/Acetaminophen 1 tab 05/13/21 22:39 Oxycodone /Acetaminophen 5-325mg Tab PO Q6H PRN Pain, Moderate (4-6) Sodium Chloride 50 ml 05/14/21 21:00 05/14/21 23:20 Sodium Chloride 0.9% 50 Ml Ivpb IV 05/18/21 21:01 50 ml Q24HR@2100 EVELYN Administration
[2021-05-15] MEDS: oxyCODONE /ACETAMINOPHEN 5-325MG TAB PO PRN (12:02)
--- NOTE | 2021-05-15 14:10 | Progress Note ---
Assessment and Plan Cultures: SARS CoV2 PCR positive Assessment: 71-year-old male with history of hypertension, obesity, admitted on 05/13/2021 secondary to 3-day history of cough, fever, chills, malaise, hiccups and shortness of breath, received first dose of Moderna vaccine on 05/09/2021: #Sepsis: secondary to bilateral pneumonia from COVID-19 #COVID-19 pneumonia: CXR with multifocal bilateral pneumonia. Infllammatory markers elevated. D-dimer 966. Ferritin 8012. CRP 9.5. #Acute hypoxemic respiratory failure: Requiring Salter nasal cannula #Elevated LFTs: from COVID Recommendations: -Continue Dexamethasone IV/PO daily for 10 days, dose increased due to morbid obesity and increasing O2 requirements -IV remdesivir x 5 days -if hypoxia worsens, may be a candidate for Actemra -Monitor inflammatory markers - Ddimer, CRP -Continue anticoagulation per System Protocol -procalcitonin is low, antibiotics discontinued Quincy Miller MD, FACP [facility], [facility] ([facility] O: [phone] F: [phone] Subjective Date of service: 05/15/21 Interval history: Afebrile. Hypoxic, requiring Salter nasal cannula. Objective - Exam Narrative Exam: Physical Exam (reviewed in chart to minimize risk of transmission) Constitutional: deferred Head, Ears, Nose: deferred Eyes: deferred Neck: deferred Oral: deferred Cardiovascular: deferred Respiratory: deferred GI: deferred Musculoskeletal: deferred Skin: deferred Hem/Lymphatic: deferred Psych: deferred Neurological: deferred - Constitutional Vitals: Vital Signs Temp Pulse Resp BP Pulse Ox 98.9 F 66 19 173/99 94 05/15/21 07:31 05/15/21 07:47 05/15/21 07:47 05/15/21 07:31 05/15/21 13:07 Temperature -Last 24 Hours Temperature 98.9 F Temperature 99.0 F - Labs CBC & Chem 7: 05/13/21 19:28 05/15/21 07:08 Labs: Abnormal lab results 05/14/21 05/14/21 05/15/21 Range/Units 08:30 19:58 07:08 Sodium 133 L (137-145) mmol/L Chloride 97.1 L (98-107) mmol/L Creatinine 0.7 L 0.7 L (0.8-1.3) mg/dL Glucose 316 H 190 H (75-100) mg/dL AST 117 H 89 H (5-40) units/L ALT 111 H 97 H (7-56) units/L Albumin 3.0 L 3.2 L (3.9-5) g/dL Coronavirus (PCR) Positive A (Negative)
[2021-05-15 16:24] LABS: C-Reactive Protein 10.5 mg/dL (0.00-1.30)
[2021-05-15] MEDS: REMDESIVIR 100 MG in SODIUM CHLORIDE 0.9% 250ML 250 ML IV SCH (21:00)
[2021-05-15] MEDS ORDERED: ENOXAPARIN 100 MG/1 ML INJ SUB-Q SCH (22:00)
[2021-05-15] MEDS: ENOXAPARIN 120 MG/0.8 ML INJ SUB-Q SCH (22:00)
[2021-05-15] MEDS: SODIUM CHLORIDE 0.9% 50 ML IVPB IV SCH (22:00)
[2021-05-16] MEDS: hydrALAZINE 20 MG/1 ML INJ IV PRN ×2 (06:45→12:38)
--- NOTE | 2021-05-16 12:28 | Progress Note ---
Assessment and Plan Assessment and plan: -- Acute respiratory failure with hypoxia Status: Acute Due to COVID-19 pneumonia patient is requiring 40 L high flow nasal cannula oxygen/100% nonrebreather today Due to worsening hypoxia, ID increased dexamethasone dose to 8 mg daily And remdesivir per guidelines Continue DuoNeb by nebulizer every 4 hours. Prone position as much as possible Home O2 evaluation prior to discharge Consider transferring to [facility] for close observation if no improvement Will consult pulmonary --Bilateral pneumonia Status: Acute Possible community-acquired pneumonia versus Covid pneumonia Empiric antibiotics Rocephin and Zithromax, check procalcitonin levels If normal DC antibiotics, follow cultures -- COVID-19 virus infection Status: Acute Contact and droplet isolation, dexamethasone 6 mg IV daily. And remdesivir ,check inflammatory markers ID evaluation noted, Patient is on 10 L of nasal cannula oxygen Wean as tolerated, home O2 evaluation prior to discharge Prone position as needed, pulmonary as needed. --Elevated D-dimers; worsening D-dimers CTA chest negative for PE Lower extremity venous Doppler negative for DVT However due to increase oxygen requirement Empirically will treat with therapeutic dose of Lovenox Closely monitor, checked with the pharmacy We will closely monitor platelets, or any evidence of bleeding -- Hypertension/moderate control Status: Acute Continue current antihypertensives As needed hydralazine --Obesity; BMI 38.4 Status: Chronic Patient needs diet modification, lifestyle changes, exercise as tolerated and weight reduction When medically stable --DVT prophylaxis; Status: Acute Subcu Heparin 5000 units subcu every 8 hours . We will closely monitor the patient and adjust management as needed Item Processor recommendations noted and appreciated Plan of care reviewed with the patient and his nurse Brief history and daily hospital course: 74-year-old -[place] male patient was admitted with shortness of breath, hypoxic respiratory failure Requiring supplemental oxygen, high suspicion for COVID-19: A PCR test is pending 05/14/2021; Follow springer PCR test 38 oxygen to more than 90% Wean as toleratedID following Consider pulmonary evaluation if needed 05/15/2021; Patient tested positive for COVID-19 Increased dose of dexamethasone to 8 mg, remdesivir per protocol Worsening D-dimers, negative PE, negative DVT Sudden increased requirement of oxygen 40 L high flow nasal cannula 100% FiO2 I discussed with pharmacist, will start therapeutic dose of Lovenox 05/16/2021; Patient is severely hypoxemic requiring HFNC oxygen 40 L/100%/O2 sats 92 We will consult pulmonary, poor prognosis History Interval history: I have seen and examined the patient at the bedside Patient's chart and medications reviewed Isolation precautions and PPE protocols followed Patient remains on high flow nasal cannula oxygen, mild distress Hospitalist Physical - Constitutional Vitals: Temp Pulse Resp BP Pulse Ox 97.9 F 82 20 184/113 87 05/16/21 11:11 05/16/21 11:11 05/16/21 11:11 05/16/21 11:11 05/16/21 11:11 General appearance: Present: mild distress, well-nourished, obese - EENT Eyes: Present: PERRL, EOM intact - Neck Neck: Present: supple, normal ROM - Respiratory Respiratory effort: normal, other (Mild distress) Respiratory: bilateral: diminished, rhonchi, negative: rales, wheezing - Cardiovascular Rhythm: regular Heart Sounds: Present: S1 & S2 - Extremities Extremities: no ischemia, No edema - Abdominal General gastrointestinal: soft, non-tender, non-distended, normal bowel sounds - Integumentary Integumentary: Present: clear, warm - Psychiatric Psychiatric: appropriate mood/affect, cooperative - Neurologic Neurologic: moves all extremities HEART Score - HEART Score Troponin: Troponin T < 0.010 ng/mL (0.00-0.029) 05/13/21 19:28 Results - Labs CBC & Chem 7: 05/13/21 19:28 05/15/21 07:08 Labs: Laboratory Last Values WBC 4.6 K/mm3 (4.5-11.0) 05/13/21 19:28 RBC 5.08 M/mm3 (3.65-5.03) H 05/13/21 19:28 Hgb 14.5 gm/dl (11.8-15.2) 05/13/21 19:28 Hct 42.8 % (35.5-45.6) 05/13/21 19:28 MCV 84 fl (84-94) 05/13/21 19:28 MCH 29 pg (28-32) 05/13/21 19:28 MCHC 34 % (32-34) 05/13/21 19:28 RDW 14.4 % (13.2-15.2) 05/13/21 19:28 Plt Count 109 K/mm3 (140-440) L 05/13/21 19:28 Lymph % (Auto) 11.1 % (13.4-35.0) L 05/13/21 19:28 [place] % (Auto) 12.5 % (0.0-7.3) H 05/13/21 19:28 Eos % (Auto) 0.0 % (0.0-4.3) 05/13/21 19:28 Baso % (Auto) 0.3 % (0.0-1.8) 05/13/21 19:28 Lymph # (Auto) 0.5 K/mm3 (1.2-5.4) L 05/13/21 19:28 [place] # (Auto) 0.6 K/mm3 (0.0-0.8) 05/13/21 19: Eos # (Auto) 0.0 K/mm3 (0.0-0.4) 05/13/21 19:28 Baso # (Auto) 0.0 K/mm3 (0.0-0.1) 05/13/21 19:28 Seg Neutrophils % 76.1 % (40.0-70.0) H 05/13/21 19:28 Seg Neutrophils # 3.5 K/mm3 (1.8-7.7) 05/13/21 19:28 PT 13.3 Sec. (12.2-14.9) 05/13/21 19:28 INR 0.96 (0.87-1.13) 05/13/21 19:28 D-Dimer 1990.62 ng/mlDDU (0-234) H 05/15/21 15:25 Sodium 138 mmol/L (137-145) 05/15/21 07:08 Potassium 4.0 mmol/L (3.6-5.0) 05/15/21 07:08 Chloride 100.3 mmol/L (98-107) 05/15/21 07:08 Carbon Dioxide 26 mmol/L (22-30) 05/15/21 07:08 Anion Gap 16 mmol/L 05/15/21 07:08 BUN 11 mg/dL (9-20) 05/15/21 07:08 Creatinine 0.7 mg/dL (0.8-1.3) L 05/15/21 07:08 Estimated GFR > 60 ml/min 05/15/21 07:08 BUN/Creatinine Ratio 16 % 05/15/21 07:08 Glucose 190 mg/dL (75-100) H 05/15/21 07:08 Lactic Acid 1.40 mmol/L (0.7-2.0) 05/13/21 19:28 Calcium 9.1 mg/dL (8.4-10.2) 05/15/21 07:08 Magnesium 2.20 mg/dL (1.7-2.3) 05/13/21 19:28 Ferritin 2398.0 ng/mL (30.0-300.0) H 05/15/21 15:25 Total Bilirubin 0.30 mg/dL (0.1-1.2) 05/15/21 07:08 AST 89 units/L (5-40) H 05/15/21 07:08 ALT 97 units/L (7-56) H 05/15/21 07:08 Alkaline Phosphatase 77 units/L (35-129) 05/15/21 07:08 Lactate Dehydrogenase 705 units/L (91-180) H 05/15/21 15:25 Total Creatine Kinase 312 units/L (55-170) H 05/13/21 19:28 Troponin T < 0.010 ng/mL (0.00-0.029) 05/13/21 19:28 C-Reactive Protein 10.50 mg/dL (0.00-1.30) H 05/15/21 15:25 Total Protein 7.4 g/dL (6.3-8.2) 05/15/21 07:08 Albumin 3.2 g/dL (3.9-5) L 05/15/21 07:08 Albumin/Globulin Ratio 0.8 % 05/15/21 07:08 Procalcitonin < 0.05 ng/mL (<0.15) 05/13/21 19:28 Coronavirus (PCR) Positive (Negative) A 05/14/21 08:30 Hooper/IV: Voiding Method Urinal Active Medications - Current Medications Current Medications: Generic Name Dose Route Start Last Admin Trade Name Freq PRN Reason Stop Dose Admin Acetaminophen 650 mg 05/13/21 22:39 05/14/21 11:16 Acetaminophen 325 Mg Tab PO 650 mg Q4H PRN Administration Pain MILD(1-3)/Fever >100.5/TYLER Albuterol 2.5 mg 05/13/21 22:39 Albuterol 2.5 Mg/3 Ml Nebu IH Q4HRT PRN Shortness Of Breath Chlorpromazine HCl 10 mg 05/15/21 13:21 05/15/21 14:47 Chlorpromazine 10 Mg Tab PO 10 mg Q4H PRN Administration Hiccups Dexamethasone 8 mg 05/15/21 15:09 05/15/21 14:46 Dexamethasone 4 Mg/Ml Vial IV 05/22/21 10:01 8 mg DAILY EVELYN Administration Enoxaparin Sodium 120 mg 05/15/21 22:00 05/15/21 22:00 Enoxaparin 120 Mg/0.8 Ml Inj 1 mg/kg (120 mg) 120 mg SUB-Q Administration Q12HR [facility] Protocol Famotidine 20 mg 05/14/21 10:00 05/15/21 22:30 Famotidine 20 Mg Tab PO 20 mg BID EVELYN Administration Hydralazine HCl 10 mg 05/13/21 22:42 05/16/21 06:45 Hydralazine 20 Mg/1 Ml Inj IV 10 mg Q6H PRN Administration Blood Pressure Hydromorphone HCl 0.5 mg 05/13/21 22:39 Hydromorphone 1 Mg/1 Ml Inj IV Q3H PRN Pain , Severe (7-10) REMDESIVIR 100 mg/ Sodium 250 mls @ 500 mls/hr 05/15/21 21:00 05/15/21 21:00 Chloride IV 05/18/21 21:29 500 mls/hr Q24HR@2100 [facility] Administration Ondansetron HCl 4 mg 05/13/21 22:39 Ondansetron 4 Mg/2 Ml Inj IV Q8H PRN Nausea And Vomiting Oxycodone/Acetaminophen 1 tab 05/13/21 22:39 05/15/21 12:02 Oxycodone /Acetaminophen 5-325mg Tab PO 1 tab Q6H PRN Administration Pain, Moderate (4-6) Sodium Chloride 50 ml 05/14/21 21:00 05/15/21 22:00 Sodium Chloride 0.9% 50 Ml Ivpb IV 05/18/21 21:01 50 ml Q24HR@2100 [facility] Administration Nutrition/Malnutrition Assess - Dietary Evaluation Nutrition/Malnutrition Findings: Nutrition Notes Start: 05/15/21 14:10 Freq: Status: Active Protocol: Document 05/15/21 14:18 GB (Rec: 05/15/21 14:26 GB [id number]) Nutrition Notes Need for Assessment generated from: MD Order Initial or Follow up Assessment Current Diagnosis Respiratory Failure Other Pertinent Diagnosis COVID+ Current Diet cardiac diet Labs/Tests 05/15: creatinine 0.7 low x2 events, glucose 190 elevated [id number], AST 89 and ALT 97 both elevated and showing improvement Pertinent Medications remdesivir, NaCl Height 5 ft 9 in Weight 117.934 kg [place] Body Weight (kg) 72.72 BMI 38.4 Intake Prior to Admission Poor Weight change and time frame No reported weight change Weight Status Obese Subjective/Other Information on nasal cannula, restrictions with breathing may reduce PO energy intake Percent of energy/protein needs met: PO intake 75% or greater of meals will meet 80% or greater of estimated energy needs. Burn Absent Trauma Absent GI Symptoms None Food Allergy No Skin Integrity/Comment No reported complications Minimum of two criteria No Energy Intake (non-severe) <75% Estimated Energy Requirement >7 days #1 Nutrition Diagnosis Predicted suboptimal energy intake Etiology respiratory failure As Evidenced by Signs and Symptoms COVID +, reported poor po intake r/t decreased appetite Is patient on ventilator? No Is Patient Ambulatory and/or Out of Bed Yes REE-([facility] [place]-ambulatory/OOB) [ 2489.136 NUTR.MSJOOB] Kcal/Kg value to use for calculation 22 Approximate Energy Requirements Using 2595 kcal/Kg Calculation Used for Recommendations Kcal/kg Additional Notes Protein: 0.8-1 g/kg @ 117k-117g Fluids: 1 ml/kcal or per MD Nutrition Intervention Change Diet Order: continue Nutrition Support: n/a Add Supplement/Snack (indicate name/kcal add ensure enlive BID /protein ) Provides kCal: 700 Provides Protein (gm) 40 Goal #1 PO intake of meals to improve to 75% or greater TID daily during LOS Goal #2 PO intake of nutritional supplement beverages to be 50% or greater BID daily during LOS Goal #3 Weight to maintain within +/-3 % current weight during LOS Follow-Up By: 05/20/21 Additional Comments Nursing staff monitor/record PO intake of meals and supplements.
[2021-05-16] MEDS ORDERED: TOCILIZUMAB 800 MG in SODIUM CHLORIDE 0.9% 100 ML IV ONE (12:29)
--- NOTE | 2021-05-16 12:31 | Progress Note ---
Assessment and Plan Cultures: SARS CoV2 PCR positive Assessment: 71-year-old male with history of hypertension, obesity, admitted on 05/13/2021 secondary to 3-day history of cough, fever, chills, malaise, hiccups and shortness of breath, received first dose of Moderna vaccine on 05/09/2021: #Sepsis: secondary to bilateral pneumonia from COVID-19 #COVID-19 pneumonia: CXR with multifocal bilateral pneumonia. Infllammatory markers elevated. D-dimer 966. Ferritin 8012. CRP 9.5. #Acute hypoxemic respiratory failure: initially requiring [place] nasal cannula, now HFNC/BiPAP. #Elevated LFTs: from COVID Recommendations: -Continue Dexamethasone IV/PO daily for 10 days, higher dose due to morbid obesity and increasing O2 requirements -continue IV remdesivir x 5 days -Respiratory failure requiring BiPAP/HFNC, CRP elevated, meets criteria for Actemra, order placed -Monitor inflammatory markers - Ddimer, CRP -Continue anticoagulation per System Protocol -procalcitonin is low, antibiotics not needed -guarded prognosis Quincy Miller MD, FACP [facility] ([facility] O: [phone] F: [phone] Subjective Date of service: 05/16/21 Interval history: No fever. Requiring BiPAP/HFNC. Objective - Exam Narrative Exam: Physical Exam (reviewed in chart to minimize risk of transmission) Constitutional: deferred Head, Ears, Nose: deferred Eyes: deferred Neck: deferred Oral: deferred Cardiovascular: deferred Respiratory: deferred GI: deferred Musculoskeletal: deferred Skin: deferred Hem/Lymphatic: deferred Psych: deferred Neurological: deferred - Constitutional Vitals: Vital Signs Temp Pulse Resp BP Pulse Ox 97.9 F 82 20 184/113 87 05/16/21 11:11 05/16/21 11:11 05/16/21 11:11 05/16/21 11:11 05/16/21 11:11 Temperature -Last 24 Hours Temperature 97.9 F Temperature 98.2 F Temperature 97.6 F Temperature 122.0 F Temperature 97.4 F Temperature 98.0 F - Labs CBC & Chem 7: 05/13/21 19:28 05/15/21 07:08 Labs: Abnormal lab results 05/15/21 05/15/21 05/15/21 Range/Units 15:25 15:25 15:25 D-Dimer 1990.62 H (0-234) ng/mlDDU Ferritin 2398.0 H (30.0-300.0) ng/mL Lactate Dehydrogenase 705 H (91-180) units/L C-Reactive Protein 10.50 H (0.00-1.30) mg/dL
[2021-05-16] MEDS: ENOXAPARIN 120 MG/0.8 ML INJ SUB-Q SCH ×2 (12:36→23:08)
[2021-05-16] MEDS: dexAMETHasone 4 MG/ML VIAL IV SCH (12:36)
[2021-05-16] MEDS: FAMOTIDINE 20 MG TAB PO SCH ×2 (12:37→23:07)
[2021-05-16] MEDS: hydrALAZINE 25 MG TAB PO SCH ×2 (16:19→23:07)
[2021-05-16 18:49] LABS: Alanine Aminotransferase 75 units/L (7-56); Albumin 2.9 g/dL (3.9-5); Blood Urea Nitrogen 15 mg/dL (9-20); Calcium 9.5 mg/dL (8.4-10.2); Hemolysis Index 38
[2021-05-16 18:53] LABS: BUN/Creatinine Ratio 21
[2021-05-16] MEDS: REMDESIVIR 100 MG in SODIUM CHLORIDE 0.9% 250ML 250 ML IV SCH (23:07)
[2021-05-16] MEDS: SODIUM CHLORIDE 0.9% 50 ML IVPB IV SCH (23:40)
[2021-05-17] MEDS: hydrALAZINE 25 MG TAB PO SCH ×3 (06:27→23:57)
[2021-05-17 08:27] LABS: Alanine Aminotransferase 87 units/L (7-56); Blood Urea Nitrogen 15 mg/dL (9-20); Calcium 9.4 mg/dL (8.4-10.2); Hemolysis Index 228
[2021-05-17 08:34] LABS: BUN/Creatinine Ratio 25
[2021-05-17] MEDS: oxyCODONE /ACETAMINOPHEN 5-325MG TAB PO PRN (09:56)
[2021-05-17] MEDS: FAMOTIDINE 20 MG TAB PO SCH ×2 (09:56→23:57)
[2021-05-17] MEDS: dexAMETHasone 4 MG/ML VIAL IV SCH (09:56)
[2021-05-17] MEDS: ENOXAPARIN 120 MG/0.8 ML INJ SUB-Q SCH ×2 (09:56→23:56)
--- NOTE | 2021-05-17 11:56 | Progress Note ---
Assessment and Plan Assessment and plan: -- Acute respiratory failure with hypoxia Status: Acute Patient is on BiPAP with 100% FiO2. Remains hypoxemic Due to COVID-19 pneumonia patient is requiring 40 L high flow nasal cannula oxygen/100% nonrebreather Continue high-dose dexamethasone 8 mg IV daily per ID Continue DuoNeb by nebulizer every 4 hours. Prone position as much as possible Home O2 evaluation prior to discharge Consider transferring to [facility] for close observation if no improvement Pulmonary consulted --Bilateral pneumonia Status: Acute Possible community-acquired pneumonia versus Covid pneumonia Empiric antibiotics Rocephin and Zithromax, DC due to normal procalcitonin levels -- COVID-19 virus infection Status: Acute Contact and droplet isolation, dexamethasone 8 mg IV daily. And remdesivir ,check inflammatory markers Patient is on BiPAP/100% FiO2 Wean as tolerated, home O2 evaluation prior to discharge Prone position as needed, follow pulmonary evaluation --Elevated D-dimers; worsening D-dimers CTA chest negative for PE Lower extremity venous Doppler negative for DVT However due to increase oxygen requirement and severe hypoxemia Will treat with empiric therapeutic Lovenox Closely monitor, I checked with the pharmacy -- Hypertension/moderate control Status: Acute Continue current antihypertensives As needed hydralazine --Obesity; BMI 38.4 Status: Chronic Patient needs diet modification, lifestyle changes, exercise as tolerated and weight reduction When medically stable --DVT prophylaxis; Status: Acute Subcu Heparin 5000 units subcu every 8 hours . We will closely monitor the patient and adjust management as needed Mower Mechanic recommendations noted and appreciated Plan of care reviewed with the patient and his nurse Brief history and daily hospital course: 74-year-old -[place] male patient was admitted with shortness of breath, hypoxic respiratory failure Requiring supplemental oxygen, high suspicion for COVID-19: A PCR test is pending 05/14/2021; Follow springer PCR test 38 oxygen to more than 90% Wean as toleratedID following Consider pulmonary evaluation if needed 05/15/2021; Patient tested positive for COVID-19 Increased dose of dexamethasone to 8 mg, remdesivir per protocol Worsening D-dimers, negative PE, negative DVT Sudden increased requirement of oxygen 40 L high flow nasal cannula 100% FiO2 I discussed with pharmacist, will start therapeutic dose of Lovenox 05/16/2021; Patient is severely hypoxemic requiring HFNC oxygen 40 L/100%/O2 sats 92 We will consult pulmonary, poor prognosis 05/17/2021; patient is on BiPAP with 100% FiO2 Severely hypoxemic, follow pulmonary evaluation Consider transfer to [facility] for close observation Yes History Interval history: I have seen and examined the patient at the bedside Patient's chart and medications reviewed Patient is in acute respiratory distress severely hypoxemic On continuous BiPAP Hospitalist Physical - Constitutional Vitals: Temp Pulse Resp BP Pulse Ox 98.2 F 71 18 146/106 100 05/17/21 05:20 05/17/21 05:20 05/17/21 05:20 05/17/21 05:20 05/17/21 05:20 General appearance: Present: mild distress, well-nourished, obese - EENT Eyes: Present: PERRL, EOM intact - Neck Neck: Present: supple, normal ROM - Respiratory Respiratory effort: normal Respiratory: bilateral: diminished, rhonchi, negative: rales, wheezing - Cardiovascular Rhythm: regular Heart Sounds: Present: S1 & S2 - Extremities Extremities: no ischemia, No edema - Abdominal General gastrointestinal: soft, non-tender, non-distended, normal bowel sounds - Integumentary Integumentary: Present: clear, warm - Psychiatric Psychiatric: appropriate mood/affect, cooperative - Neurologic Neurologic: CNII-XII intact, moves all extremities HEART Score - HEART Score Troponin: Troponin T < 0.010 ng/mL (0.00-0.029) 05/13/21 19:28 Results - Labs CBC & Chem 7: 05/13/21 19:28 05/17/21 06:58 Labs: Laboratory Last Values WBC 4.6 K/mm3 (4.5-11.0) 05/13/21 19:28 RBC 5.08 M/mm3 (3.65-5.03) H 05/13/21 19:28 Hgb 14.5 gm/dl (11.8-15.2) 05/13/21 19:28 Hct 42.8 % (35.5-45.6) 05/13/21 19:28 MCV 84 fl (84-94) 05/13/21 19:28 MCH 29 pg (28-32) 05/13/21 19:28 MCHC 34 % (32-34) 05/13/21 19:28 RDW 14.4 % (13.2-15.2) 05/13/21 19:28 Plt Count 109 K/mm3 (140-440) L 05/13/21 19:28 Lymph % (Auto) 11.1 % (13.4-35.0) L 05/13/21 19:28 [place] % (Auto) 12.5 % (0.0-7.3) H 05/13/21 19:28 Eos % (Auto) 0.0 % (0.0-4.3) 05/13/21 19:28 Baso % (Auto) 0.3 % (0.0-1.8) 05/13/21 19:28 Lymph # (Auto) 0.5 K/mm3 (1.2-5.4) L 05/13/21 19:28 [place] # (Auto) 0.6 K/mm3 (0.0-0.8) 05/13/21 19: Eos # (Auto) 0.0 K/mm3 (0.0-0.4) 05/13/21 19: Baso # (Auto) 0.0 K/mm3 (0.0-0.1) 05/13/21 19:28 Seg Neutrophils % 76.1 % (40.0-70.0) H 05/13/21 19:28 Seg Neutrophils # 3.5 K/mm3 (1.8-7.7) 05/13/21 19:28 PT 13.3 Sec. (12.2-14.9) 05/13/21 19:28 INR 0.96 (0.87-1.13) 05/13/21 19:28 D-Dimer 1990.62 ng/mlDDU (0-234) H 05/15/21 15:25 Sodium 142 mmol/L (137-145) 05/17/21 06:58 Potassium 5.1 mmol/L (3.6-5.0) H 05/17/21 06:58 Chloride 103.3 mmol/L (98-107) 05/17/21 06:58 Carbon Dioxide 27 mmol/L (22-30) 05/17/21 06:58 Anion Gap 17 mmol/L 05/17/21 06:58 BUN 15 mg/dL (9-20) 05/17/21 06:58 Creatinine 0.6 mg/dL (0.8-1.3) L 05/17/21 06:58 Estimated GFR > 60 ml/min 05/17/21 06:58 BUN/Creatinine Ratio 25 % 05/17/21 06:58 Glucose 170 mg/dL (75-100) H 05/17/21 06:58 Lactic Acid 1.40 mmol/L (0.7-2.0) 05/13/21 19:28 Calcium 9.4 mg/dL (8.4-10.2) 05/17/21 06:58 Magnesium 2.20 mg/dL (1.7-2.3) 05/13/21 19:28 Ferritin 2398.0 ng/mL (30.0-300.0) H 05/15/21 15:25 Total Bilirubin 0.50 mg/dL (0.1-1.2) 05/17/21 06:58 AST 83 units/L (5-40) H 05/17/21 06:58 ALT 87 units/L (7-56) H 05/17/21 06:58 Alkaline Phosphatase 101 units/L (35-129) 05/17/21 06:58 Lactate Dehydrogenase 705 units/L (91-180) H 05/15/21 15:25 Total Creatine Kinase 312 units/L (55-170) H 05/13/21 19:28 Troponin T < 0.010 ng/mL (0.00-0.029) 05/13/21 19:28 C-Reactive Protein 10.50 mg/dL (0.00-1.30) H 05/15/21 15:25 Total Protein 7.9 g/dL (6.3-8.2) 05/17/21 06:58 Albumin 3.0 g/dL (3.9-5) L 05/17/21 06:58 Albumin/Globulin Ratio 0.6 % 05/17/21 06:58 Procalcitonin < 0.05 ng/mL (<0.15) 05/13/21 19:28 Coronavirus (PCR) Positive (Negative) A 05/14/21 08:30 Hooper/IV: Voiding Method Urinal Active Medications - Current Medications Current Medications: Generic Name Dose Route Start Last Admin Trade Name Freq PRN Reason Stop Dose Admin Acetaminophen 650 mg 05/13/21 22:39 05/14/21 11:16 Acetaminophen 325 Mg Tab PO 650 mg Q4H PRN Administration Pain MILD(1-3)/Fever >100.5/TYLER Albuterol 2.5 mg 05/13/21 22:39 Albuterol 2.5 Mg/3 Ml Nebu IH Q4HRT PRN Shortness Of Breath Chlorpromazine HCl 10 mg 05/15/21 13:21 05/15/21 14:47 Chlorpromazine 10 Mg Tab PO 10 mg Q4H PRN Administration Hiccups Dexamethasone 8 mg 05/15/21 15:09 05/17/21 09:56 Dexamethasone 4 Mg/Ml Vial IV 05/22/21 10:01 8 mg DAILY EVELYN Administration Enoxaparin Sodium 120 mg 05/15/21 22:00 05/17/21 09:56 Enoxaparin 120 Mg/0.8 Ml Inj 1 mg/kg (120 mg) 120 mg SUB-Q Administration Q12HR [facility] Protocol Famotidine 20 mg 05/14/21 10:00 05/17/21 09:56 Famotidine 20 Mg Tab PO 20 mg BID EVELYN Administration Hydralazine HCl 10 mg 05/13/21 22:42 05/16/21 12:38 Hydralazine 20 Mg/1 Ml Inj IV 10 mg Q6H PRN Administration Blood Pressure Hydralazine HCl 25 mg 05/16/21 14:00 05/17/21 06:27 Hydralazine 25 Mg Tab PO 25 mg Q8HR EVELYN Administration Hydromorphone HCl 0.5 mg 05/13/21 22:39 Hydromorphone 1 Mg/1 Ml Inj IV Q3H PRN Pain , Severe (7-10) REMDESIVIR 100 mg/ Sodium 250 mls @ 500 mls/hr 05/15/21 21:00 05/16/21 23:07 Chloride IV 05/18/21 21:29 500 mls/hr Q24HR@2100 EVELYN Administration TOCILIZUMAB 800 mg/ Sodium 140 mls @ 120 mls/hr 05/16/21 12:29 Chloride IV 05/16/21 13:38 ONCE ONE Ondansetron HCl 4 mg 05/13/21 22:39 Ondansetron 4 Mg/2 Ml Inj IV Q8H PRN Nausea And Vomiting Oxycodone/Acetaminophen 1 tab 05/13/21 22:39 05/17/21 09:56 Oxycodone /Acetaminophen 5-325mg Tab PO 1 tab Q6H PRN Administration Pain, Moderate (4-6) Sodium Chloride 50 ml 05/14/21 21:00 05/16/21 23:40 Sodium Chloride 0.9% 50 Ml Ivpb IV 05/18/21 21:01 50 ml Q24HR@2100 EVELYN Administration Nutrition/Malnutrition Assess - Dietary Evaluation Nutrition/Malnutrition Findings: Nutrition Notes Start: 05/15/21 14:10 Freq: Status: Active Protocol: Document 05/15/21 14:18 GB (Rec: 05/15/21 14:26 GB [id number]) Nutrition Notes Need for Assessment generated from: MD Order Initial or Follow up Assessment Current Diagnosis Respiratory Failure Other Pertinent Diagnosis COVID+ Current Diet cardiac diet Labs/Tests 05/15: creatinine 0.7 low x2 events, glucose 190 elevated [id number], AST 89 and ALT 97 both elevated and showing improvement Pertinent Medications remdesivir, NaCl Height 5 ft 9 in Weight 117.934 kg [place] Body Weight (kg) 72.72 BMI 38.4 Intake Prior to Admission Poor Weight change and time frame No reported weight change Weight Status Obese Subjective/Other Information on nasal cannula, restrictions with breathing may reduce PO energy intake Percent of energy/protein needs met: PO intake 75% or greater of meals will meet 80% or greater of estimated energy needs. Burn Absent Trauma Absent GI Symptoms None Food Allergy No Skin Integrity/Comment No reported complications Minimum of two criteria No Energy Intake (non-severe) <75% Estimated Energy Requirement >7 days #1 Nutrition Diagnosis Predicted suboptimal energy intake Etiology respiratory failure As Evidenced by Signs and Symptoms COVID +, reported poor po intake r/t decreased appetite Is patient on ventilator? No Is Patient Ambulatory and/or Out of Bed Yes REE-([place] or-ambulatory/OOB) [ 2489.136 NUTR.MSJOOB] Kcal/Kg value to use for calculation 22 Approximate Energy Requirements Using 2595 kcal/Kg Calculation Used for Recommendations Kcal/kg Additional Notes Protein: 0.8-1 g/kg @ 117k-117g Fluids: 1 ml/kcal or per MD Nutrition Intervention Change Diet Order: continue Nutrition Support: n/a Add Supplement/Snack (indicate name/kcal add ensure enlive BID /protein ) Provides kCal: 700 Provides Protein (gm) 40 Goal #1 PO intake of meals to improve to 75% or greater TID daily during LOS Goal #2 PO intake of nutritional supplement beverages to be 50% or greater BID daily during LOS Goal #3 Weight to maintain within +/-3 % current weight during LOS Follow-Up By: 05/20/21 Additional Comments Nursing staff monitor/record PO intake of meals and supplements.
--- NOTE | 2021-05-17 12:01 | Consultation ---
History of Present Illness Consult date: 05/17/21 Requesting physician: ALFONZO COX Reason for consult: hypoxemia, other (COvid) History of present illness: 71 y/o male admitted several days ago with acute respiratory failure secondary to COVID pneumonia. IN the past 48 hours oxygen requirement has increased to needing bipap therapy 20/10 and 100%. Pulmonary consulted secondary to worsening respiratory failure. Patient is on Remdesivir and ID ordered actemra yesterday. Not sure if he has been proning. Past History Past Medical History: hypertension Medications and Allergies Allergies Allergy/AdvReac Type Severity Reaction Status Date / Time No Known Allergies Allergy Unverified 05/13/21 19:22 Home Medications Medication Instructions Recorded Confirmed Last Taken Type No Known Home Medications [No 05/14/21 05/14/21 Unknown History Reported Home Medications] Active Meds: Active Medications Acetaminophen (Acetaminophen 325 Mg Tab) 650 mg PO Q4H PRN PRN Reason: Pain MILD(1-3)/Fever >100.5/TYLER Last Admin: 05/14/21 11:16 Dose: 650 mg Documented by: Albuterol (Albuterol 2.5 Mg/3 Ml Nebu) 2.5 mg IH Q4HRT PRN PRN Reason: Shortness Of Breath Chlorpromazine HCl (Chlorpromazine 10 Mg Tab) 10 mg PO Q4H PRN PRN Reason: Hiccups Last Admin: 05/15/21 14:47 Dose: 10 mg Documented by: Dexamethasone (Dexamethasone 4 Mg/Ml Vial) 8 mg IV DAILY [facility] Stop: 05/22/21 10:01 Last Admin: 05/17/21 09:56 Dose: 8 mg Documented by: Enoxaparin Sodium (Enoxaparin 120 Mg/0.8 Ml Inj) 120 mg 1 mg/kg (120 mg) SUB-Q Q12HR [facility]; Protocol Last Admin: 05/17/21 09:56 Dose: 120 mg Documented by: Famotidine (Famotidine 20 Mg Tab) 20 mg PO BID [facility] Last Admin: 05/17/21 09:56 Dose: 20 mg Documented by: Hydralazine HCl (Hydralazine 20 Mg/1 Ml Inj) 10 mg IV Q6H PRN PRN Reason: Blood Pressure Last Admin: 05/16/21 12:38 Dose: 10 mg Documented by: Hydralazine HCl (Hydralazine 25 Mg Tab) 25 mg PO Q8HR [facility] Last Admin: 05/17/21 06:27 Dose: 25 mg Documented by: Hydromorphone HCl (Hydromorphone 1 Mg/1 Ml Inj) 0.5 mg IV Q3H PRN PRN Reason: Pain , Severe (7-10) REMDESIVIR 100 mg/ Sodium (Chloride) 250 mls @ 500 mls/hr IV Q24HR@2100 [facility] Stop: 05/18/21 21:29 Last Admin: 05/16/21 23:07 Dose: 500 mls/hr Documented by: TOCILIZUMAB 800 mg/ Sodium (Chloride) 140 mls @ 120 mls/hr IV ONCE ONE Stop: 05/16/21 13:38 Ondansetron HCl (Ondansetron 4 Mg/2 Ml Inj) 4 mg IV Q8H PRN PRN Reason: Nausea And Vomiting Oxycodone/Acetaminophen (Oxycodone /Acetaminophen 5-325mg Tab) 1 tab PO Q6H PRN PRN Reason: Pain, Moderate (4-6) Last Admin: 05/17/21 09:56 Dose: 1 tab Documented by: Sodium Chloride (Sodium Chloride 0.9% 50 Ml Ivpb) 50 ml IV Q24HR@2100 [facility] Stop: 05/18/21 21:01 Last Admin: 05/16/21 23:40 Dose: 50 ml Documented by: Physical Examination Vital signs: Vital Signs Pulse Ox 93 05/13/21 18:33 Results - Laboratory Findings CBC and BMP: 05/13/21 19:28 05/17/21 06:58 PT/INR, D-dimer PT 13.3 Sec. (12.2-14.9) 05/13/21 19:28 INR 0.96 (0.87-1.13) 05/13/21 19:28 D-Dimer 1990.62 ng/mlDDU (0-234) H 05/15/21 15:25 Abnormal lab findings: Abnormal Labs 05/13/21 05/13/21 05/13/21 19:28 19:28 19:28 RBC 5.08 H Plt Count 109 L Lymph % (Auto) 11.1 L [place] % (Auto) 12.5 H Lymph # (Auto) 0.5 L Seg Neutrophils % 76.1 H D-Dimer 966.69 H Sodium 134 L Potassium Chloride 97.9 L Creatinine Glucose 132 H Ferritin AST 102 H ALT 82 H Lactate Dehydrogenase 500 H Total Creatine Kinase 312 H C-Reactive Protein 9.50 H Albumin 3.4 L Coronavirus (PCR) 05/13/21 05/14/21 05/14/21 19:28 04:14 08:30 RBC Plt Count Lymph % (Auto) [place] % (Auto) Lymph # (Auto) Seg Neutrophils % D-Dimer Sodium Potassium 3.5 L Chloride Creatinine Glucose 133 H Ferritin 1812.0 H AST ALT Lactate Dehydrogenase Total Creatine Kinase C-Reactive Protein Albumin Coronavirus (PCR) Positive A 05/14/21 05/15/21 05/15/21 19:58 07:08 15:25 RBC Plt Count Lymph % (Auto) [place] % (Auto) Lymph # (Auto) Seg Neutrophils % D-Dimer 1990.62 H Sodium 133 L Potassium Chloride 97.1 L Creatinine 0.7 L 0.7 L Glucose 316 H 190 H Ferritin AST 117 H 89 H ALT 111 H 97 H Lactate Dehydrogenase Total Creatine Kinase C-Reactive Protein Albumin 3.0 L 3.2 L Coronavirus (PCR) 05/15/21 05/15/21 05/16/21 15:25 15:25 18:06 RBC Plt Count Lymph % (Auto) [place] % (Auto) Lymph # (Auto) Seg Neutrophils % D-Dimer Sodium Potassium 5.6 H D Chloride Creatinine 0.7 L Glucose 235 H Ferritin 2398.0 H AST 57 H ALT 75 H Lactate Dehydrogenase 705 H Total Creatine Kinase C-Reactive Protein 10.50 H Albumin 2.9 L Coronavirus (PCR) 05/17/21 06:58 RBC Plt Count Lymph % (Auto) [place] % (Auto) Lymph # (Auto) Seg Neutrophils % D-Dimer Sodium Potassium 5.1 H Chloride Creatinine 0.6 L Glucose 170 H Ferritin AST 83 H ALT 87 H Lactate Dehydrogenase Total Creatine Kinase C-Reactive Protein Albumin 3.0 L Coronavirus (PCR) - Diagnostic Findings Chest x-ray: image reviewed CT scan - chest: image reviewed Assessment and Plan 71 y/o male with acute respiratory failure, worsening secondary to COVID pneumonia. 1. Suggest increasing steroids to even higher doses given increasing oxygen requirement. Would recommend Solumedrol 125 mg IV q8 hours 2. Agree with Remdesivir and Actemra therapy 3. Suggest prone as much as possible during the day and sleep prone at night, maybe difficult to do now that on bipap therapy 4. Daily net negative state, so would limit volume and use lasix as needed to achieve this. 5. Monitor for chest pain or signs of cardiac instability. Have been seeing patients have MT even on full dose anticoagulation secondary to COVID 6. Guarded prognosis, given worsening oxygen requirement and obesity 7. Blood pressure control per primary team
--- NOTE | 2021-05-17 18:24 | Progress Note ---
Assessment and Plan Cultures: SARS CoV2 PCR positive Assessment: 71-year-old male with history of hypertension, obesity, admitted on 05/13/2021 secondary to 3-day history of cough, fever, chills, malaise, hiccups and shortness of breath, received first dose of Moderna vaccine on 05/09/2021: #Sepsis: secondary to bilateral pneumonia from COVID-19 #COVID-19 pneumonia: CXR with multifocal bilateral pneumonia. Infllammatory markers elevated. D-dimer 966. Ferritin 8012. CRP 9.5. #Acute hypoxemic respiratory failure: initially requiring [place] nasal cannula, now HFNC/BiPAP. #Elevated LFTs: from COVID Recommendations: -Continue Dexamethasone IV/PO daily for 10 days, higher dose due to morbid obesity and increasing O2 requirements -continue IV remdesivir x 5 days -Respiratory failure requiring BiPAP/HFNC, CRP elevated, meets criteria for Actemra, order placed 05/16/2021. UNsure if given, don't see pharmacy note. -Monitor inflammatory markers - Ddimer, CRP -Continue anticoagulation per System Protocol -procalcitonin is low, antibiotics not needed -guarded prognosis Ezra Haines MD [facility] O: [phone] F: [phone] Subjective Date of service: 05/17/21 Interval history: Afebrile, no acute change. On BiPAP. Objective - Exam Narrative Exam: Physical exam deferred to reduce risk of transmission of COVID-19. Please refer to primary team's note. - Constitutional Vitals: Vital Signs Temp Pulse Resp BP Pulse Ox 98.5 F 80 18 166/113 93 05/17/21 16:46 05/17/21 16:46 05/17/21 16:46 05/17/21 16:46 05/17/21 16:46 Temperature -Last 24 Hours Temperature 98.5 F Temperature 97.7 F Temperature 98.2 F Temperature 98.2 F - Labs CBC & Chem 7: 05/13/21 19:28 05/17/21 06:58 Labs: Abnormal lab results 05/16/21 05/17/21 Range/Units 18:06 06:58 Potassium 5.6 H D 5.1 H (3.6-5.0) mmol/L Creatinine 0.7 L 0.6 L (0.8-1.3) mg/dL Glucose 235 H 170 H (75-100) mg/dL AST 57 H 83 H (5-40) units/L ALT 75 H 87 H (7-56) units/L Albumin 2.9 L 3.0 L (3.9-5) g/dL
[2021-05-17] MEDS: hydrALAZINE 20 MG/1 ML INJ IV PRN (19:15)
--- NOTE | 2021-05-17 19:34 | Progress Note ---
Assessment and Plan Assessment and plan: -- Acute respiratory failure with severe hypoxia Status: Acute Today patient is requiring continuous BiPAP with 100% FiO2. Remains hypoxemic on BiPAP Due to COVID-19 pneumonia patient is requiring 40 L high flow nasal cannula oxygen/100% nonrebreather Continue high-dose dexamethasone 8 mg IV daily per ID Continue DuoNeb by nebulizer every 4 hours. Prone position as much as possible Home O2 evaluation prior to discharge Consider transferring to [facility] for close observation if no improvement Pulmonary following, patient is critically ill with very poor prognosis --Severe COVID-19 virus infection Status: Acute Contact and droplet isolation, dexamethasone 8 mg IV daily. On remdesivir per protocol,check inflammatory markers Patient is on BiPAP/100% FiO2 Wean as tolerated, home O2 evaluation prior to discharge Prone position as needed, follow pulmonary evaluation ID recommended Actemra pending Patient is critically ill with very poor prognosis Critical care time 60 minutes The high probability of a clinically significant, sudden or life threatening deterioration of the [pulmonary, endocrine, and metabolic] system(s) required my full and direct attention, intervention and personal management. The aggregate critical care time was [60] minutes. This time is in addition to time spent performing reported procedures but includes the following: [x] Data Review and interpretation [x] Patient assessment and monitoring of vital signs [x] Documentation [x] Medication orders and management --Bilateral pneumonia Status: Acute Possible community-acquired pneumonia versus Covid pneumonia Empiric antibiotics Rocephin and Zithromax, DC due to normal procalcitonin levels --Elevated D-dimers; worsening D-dimers CTA chest negative for PE Lower extremity venous Doppler negative for DVT However due to increase oxygen requirement and severe hypoxemia Will treat with empiric therapeutic Lovenox Closely monitor, I checked with the pharmacy -- Hypertension/moderate control Status: Acute Continue current antihypertensives As needed hydralazine --Obesity; BMI 38.4 Status: Chronic Patient needs diet modification, lifestyle changes, exercise as tolerated and weight reduction When medically stable --DVT prophylaxis; Status: Acute Subcu Heparin 5000 units subcu every 8 hours . We will closely monitor the patient and adjust management as needed Rfid Systems Engineer recommendations noted and appreciated Plan of care reviewed with the patient and his nurse Brief history and daily hospital course: 74-year-old -[place] male patient was admitted with shortness of breath, hypoxic respiratory failure Requiring supplemental oxygen, high suspicion for COVID-19: A PCR test is pending 05/14/2021; Follow springer PCR test 38 oxygen to more than 90% Wean as toleratedID following Consider pulmonary evaluation if needed 05/15/2021; Patient tested positive for COVID-19 Increased dose of dexamethasone to 8 mg, remdesivir per protocol Worsening D-dimers, negative PE, negative DVT Sudden increased requirement of oxygen 40 L high flow nasal cannula 100% FiO2 I discussed with pharmacist, will start therapeutic dose of Lovenox 05/16/2021; Patient is severely hypoxemic requiring HFNC oxygen 40 L/100%/O2 sats 92 We will consult pulmonary, poor prognosis 05/17/2021; patient is on BiPAP with 100% FiO2 Severely hypoxemic, follow pulmonary evaluation Consider transfer to [facility] for close observation 05/18/2021; Poor prognosis, follow pulmonary recommendations ID recommended Actemra, pending Patient is critically ill with poor prognosis Requiring continuous BiPAP 100% FiO2 History Interval history: I have seen and examined the patient at the bedside Patient's chart and medications reviewed Today patient is on BiPAP 100% FiO2 Mild distress, severely hypoxemic Hospitalist Physical - Constitutional Vitals: Temp Pulse Resp BP Pulse Ox 98.5 F 80 18 166/113 93 05/17/21 16:46 05/17/21 16:46 05/17/21 16:46 05/17/21 16:46 05/17/21 16:46 General appearance: Present: mild distress, well-nourished, obese, other (On BiPAP) - EENT Eyes: Present: PERRL, EOM intact - Neck Neck: Present: supple, normal ROM - Respiratory Respiratory effort: normal Respiratory: bilateral: diminished, rhonchi, negative: rales, wheezing - Cardiovascular Rhythm: regular Heart Sounds: Present: S1 & S2 - Extremities Extremities: no ischemia, No edema - Abdominal General gastrointestinal: soft, non-tender, non-distended, normal bowel sounds - Integumentary Integumentary: Present: clear, warm - Psychiatric Psychiatric: appropriate mood/affect, cooperative - Neurologic Neurologic: CNII-XII intact, moves all extremities HEART Score - HEART Score Troponin: Troponin T < 0.010 ng/mL (0.00-0.029) 05/13/21 19:28 Results - Labs CBC & Chem 7: 05/13/21 19:28 05/17/21 06:58 Labs: Laboratory Last Values WBC 4.6 K/mm3 (4.5-11.0) 05/13/21 19: RBC 5.08 M/mm3 (3.65-5.03) H 05/13/21 19: Hgb 14.5 gm/dl (11.8-15.2) 05/13/21 19: Hct 42.8 % (35.5-45.6) 05/13/21 19: MCV 84 fl (84-94) 05/13/21 19: MCH 29 pg (28-32) 05/13/21 19: MCHC 34 % (32-34) 05/13/21: RDW 14.4 % (13.2-15.2) 05/13/21 19: Plt Count 109 K/mm3 (140-440) L 05/13/21 19: Lymph % (Auto) 11.1 % (13.4-35.0) L 05/13/21: [place] % (Auto) 12.5 % (0.0-7.3) H 05/13/21 19: Eos % (Auto) 0.0 % (0.0-4.3) 05/13/21: Baso % (Auto) 0.3 % (0.0-1.8) 05/13/21: Lymph # (Auto) 0.5 K/mm3 (1.2-5.4) L 05/13/21: [place] # (Auto) 0.6 K/mm3 (0.0-0.8) 05/13/21 19: Eos # (Auto) 0.0 K/mm3 (0.0-0.4) 05/13/21: Baso # (Auto) 0.0 K/mm3 (0.0-0.1) 05/13/21: Seg Neutrophils % 76.1 % (40.0-70.0) H 05/13/21 19: Seg Neutrophils # 3.5 K/mm3 (1.8-7.7) 05/13/21: PT 13.3 Sec. (12.2-14.9) 05/13/21 19:28 INR 0.96 (0.87-1.13) 05/13/21 19:28 D-Dimer 1990.62 ng/mlDDU (0-234) H 05/15/21 15:25 Sodium 142 mmol/L (137-145) 05/17/21 06:58 Potassium 5.1 mmol/L (3.6-5.0) H 05/17/21 06:58 Chloride 103.3 mmol/L (98-107) 05/17/21 06:58 Carbon Dioxide 27 mmol/L (22-30) 05/17/21 06:58 Anion Gap 17 mmol/L 05/17/21 06:58 BUN 15 mg/dL (9-20) 05/17/21 06:58 Creatinine 0.6 mg/dL (0.8-1.3) L 05/17/21 06:58 Estimated GFR > 60 ml/min 05/17/21 06:58 BUN/Creatinine Ratio 25 % 05/17/21 06:58 Glucose 170 mg/dL (75-100) H 05/17/21 06:58 Lactic Acid 1.40 mmol/L (0.7-2.0) 05/13/21 19:28 Calcium 9.4 mg/dL (8.4-10.2) 05/17/21 06:58 Magnesium 2.20 mg/dL (1.7-2.3) 05/13/21 19:28 Ferritin 2398.0 ng/mL (30.0-300.0) H 05/15/21 15:25 Total Bilirubin 0.50 mg/dL (0.1-1.2) 05/17/21 06:58 AST 83 units/L (5-40) H 05/17/21 06:58 ALT 87 units/L (7-56) H 05/17/21 06:58 Alkaline Phosphatase 101 units/L (35-129) 05/17/21 06:58 Lactate Dehydrogenase 705 units/L (91-180) H 05/15/21 15:25 Total Creatine Kinase 312 units/L (55-170) H 05/13/21 19:28 Troponin T < 0.010 ng/mL (0.00-0.029) 05/13/21 19:28 C-Reactive Protein 10.50 mg/dL (0.00-1.30) H 05/15/21 15:25 Total Protein 7.9 g/dL (6.3-8.2) 05/17/21 06:58 Albumin 3.0 g/dL (3.9-5) L 05/17/21 06:58 Albumin/Globulin Ratio 0.6 % 05/17/21 06:58 Procalcitonin < 0.05 ng/mL (<0.15) 05/13/21 19:28 Coronavirus (PCR) Positive (Negative) A 05/14/21 08:30 Hooper/IV: Voiding Method Urinal Active Medications - Current Medications Current Medications: Generic Name Dose Route Start Last Admin Trade Name Freq PRN Reason Stop Dose Admin Acetaminophen 650 mg 05/13/21 22:39 05/14/21 11:16 Acetaminophen 325 Mg Tab PO 650 mg Q4H PRN Administration Pain MILD(1-3)/Fever >100.5/TYLER Albuterol 2.5 mg 05/13/21 22:39 Albuterol 2.5 Mg/3 Ml Nebu IH Q4HRT PRN Shortness Of Breath Chlorpromazine HCl 10 mg 05/15/21 13:21 05/15/21 14:47 Chlorpromazine 10 Mg Tab PO 10 mg Q4H PRN Administration Hiccups Dexamethasone 8 mg 05/15/21 15:09 05/17/21 09:56 Dexamethasone 4 Mg/Ml Vial IV 05/22/21 10:01 8 mg DAILY EVELYN Administration Enoxaparin Sodium 120 mg 05/15/21 22:00 05/17/21 09:56 Enoxaparin 120 Mg/0.8 Ml Inj 1 mg/kg (120 mg) 120 mg SUB-Q Administration Q12HR [facility] Protocol Famotidine 20 mg 05/14/21 10:00 05/17/21 09:56 Famotidine 20 Mg Tab PO 20 mg BID EVELYN Administration Hydralazine HCl 10 mg 05/13/21 22:42 05/17/21 19:15 Hydralazine 20 Mg/1 Ml Inj IV 10 mg Q6H PRN Administration Blood Pressure Hydralazine HCl 25 mg 05/16/21 14:00 05/17/21 14:00 Hydralazine 25 Mg Tab PO 25 mg Q8HR EVELYN Administration Hydromorphone HCl 0.5 mg 05/13/21 22:39 Hydromorphone 1 Mg/1 Ml Inj IV Q3H PRN Pain , Severe (7-10) REMDESIVIR 100 mg/ Sodium 250 mls @ 500 mls/hr 05/15/21 21:00 05/16/21 23:07 Chloride IV 05/18/21 21:29 500 mls/hr Q24HR@2100 EVELYN Administration TOCILIZUMAB 800 mg/ Sodium 140 mls @ 120 mls/hr 05/16/21 12:29 Chloride IV 05/16/21 13:38 ONCE ONE Ondansetron HCl 4 mg 05/13/21 22:39 Ondansetron 4 Mg/2 Ml Inj IV Q8H PRN Nausea And Vomiting Oxycodone/Acetaminophen 1 tab 05/13/21 22:39 05/17/21 09:56 Oxycodone /Acetaminophen 5-325mg Tab PO 1 tab Q6H PRN Administration Pain, Moderate (4-6) Sodium Chloride 50 ml 05/14/21 21:00 05/16/21 23:40 Sodium Chloride 0.9% 50 Ml Ivpb IV 05/18/21 21:01 50 ml Q24HR@2100 EVELYN Administration Nutrition/Malnutrition Assess - Dietary Evaluation Nutrition/Malnutrition Findings: Nutrition Notes Start: 05/15/21 14:10 Freq: Status: Active Protocol: Document 05/15/21 14:18 GB (Rec: 05/15/21 14:26 GB [email or web address]) Nutrition Notes Need for Assessment generated from: MD Order Initial or Follow up Assessment Current Diagnosis Respiratory Failure Other Pertinent Diagnosis COVID+ Current Diet cardiac diet Labs/Tests 05/15: creatinine 0.7 low x2 events, glucose 190 elevated [id number], AST 89 and ALT 97 both elevated and showing improvement Pertinent Medications remdesivir, NaCl Height 5 ft 9 in Weight 117.934 kg [place] Body Weight (kg) 72.72 BMI 38.4 Intake Prior to Admission Poor Weight change and time frame No reported weight change Weight Status Obese Subjective/Other Information on nasal cannula, restrictions with breathing may reduce PO energy intake Percent of energy/protein needs met: PO intake 75% or greater of meals will meet 80% or greater of estimated energy needs. Burn Absent Trauma Absent GI Symptoms None Food Allergy No Skin Integrity/Comment No reported complications Minimum of two criteria No Energy Intake (non-severe) <75% Estimated Energy Requirement >7 days #1 Nutrition Diagnosis Predicted suboptimal energy intake Etiology respiratory failure As Evidenced by Signs and Symptoms COVID +, reported poor po intake r/t decreased appetite Is patient on ventilator? No Is Patient Ambulatory and/or Out of Bed Yes REE-([place]-St. Jeor-ambulatory/OOB) [ 2489.136 [id number]] Kcal/Kg value to use for calculation 22 Approximate Energy Requirements Using 2595 kcal/Kg Calculation Used for Recommendations Kcal/kg Additional Notes Protein: 0.8-1 g/kg @ 117k-117g Fluids: 1 ml/kcal or per MD Nutrition Intervention Change Diet Order: continue Nutrition Support: n/a Add Supplement/Snack (indicate name/kcal add ensure enlive BID /protein ) Provides kCal: 700 Provides Protein (gm) 40 Goal #1 PO intake of meals to improve to 75% or greater TID daily during LOS Goal #2 PO intake of nutritional supplement beverages to be 50% or greater BID daily during LOS Goal #3 Weight to maintain within +/-3 % current weight during LOS Follow-Up By: 05/20/21 Additional Comments Nursing staff monitor/record PO intake of meals and supplements.
[2021-05-17] MEDS: REMDESIVIR 100 MG in SODIUM CHLORIDE 0.9% 250ML 250 ML IV SCH (23:56)
[2021-05-17] MEDS: SODIUM CHLORIDE 0.9% 50 ML IVPB IV SCH (23:56)
[2021-05-18] MEDS: hydrALAZINE 25 MG TAB PO SCH ×3 (06:17→23:06)
[2021-05-18] MEDS: FAMOTIDINE 20 MG TAB PO SCH ×2 (10:42→23:06)
[2021-05-18] MEDS: dexAMETHasone 4 MG/ML VIAL IV SCH (10:42)
[2021-05-18] MEDS: ENOXAPARIN 120 MG/0.8 ML INJ SUB-Q SCH ×2 (10:42→23:06)
[2021-05-18] MEDS: oxyCODONE /ACETAMINOPHEN 5-325MG TAB PO PRN (10:42)
--- NOTE | 2021-05-18 11:28 | Progress Note ---
Assessment and Plan 71 y/o male with acute respiratory failure, worsening secondary to COVID pneumonia. 05/18/21: no new recommendations, same as yesterday. Very guarded prognosis. 1. Suggest increasing steroids to even higher doses given increasing oxygen requirement. Would recommend Solumedrol 125 mg IV q8 hours 2. Agree with Remdesivir and Actemra therapy 3. Suggest prone as much as possible during the day and sleep prone at night, maybe difficult to do now that on bipap therapy 4. Daily net negative state, so would limit volume and use lasix as needed to achieve this. 5. Monitor for chest pain or signs of cardiac instability. Have been seeing patients have DE even on full dose anticoagulation secondary to COVID 6. Guarded prognosis, given worsening oxygen requirement and obesity 7. Blood pressure control per primary team Subjective Date of service: 05/18/21 Interval history: Clinically no improvement but no overall worsening. BP remains elevated. Objective Vital Signs - 12hr 05/18/21 05/18/21 05/18/21 02:00 04:00 04:48 Temperature 98.0 F Pulse Rate 83 85 Respiratory 30 H 31 H Rate Blood Pressure 155/99 O2 Sat by Pulse 92 94 98 Oximetry CBC and BMP: 05/13/21 19:28 05/17/21 06:58 ABG, PT/INR, D-dimer: PT/INR, D-dimer PT 13.3 Sec. (12.2-14.9) 05/13/21 19:28 INR 0.96 (0.87-1.13) 05/13/21 19:28 D-Dimer 1990.62 ng/mlDDU (0-234) H 05/15/21 15:25 Abnormal lab findings: Abnormal Labs 05/13/21 05/13/21 05/13/21 19:28 19:28 19:28 RBC 5.08 H Plt Count 109 L Lymph % (Auto) 11.1 L [place] % (Auto) 12.5 H Lymph # (Auto) 0.5 L Seg Neutrophils % 76.1 H D-Dimer 966.69 H Sodium 134 L Potassium Chloride 97.9 L Creatinine Glucose 132 H Ferritin AST 102 H ALT 82 H Lactate Dehydrogenase 500 H Total Creatine Kinase 312 H C-Reactive Protein 9.50 H Albumin 3.4 L Coronavirus (PCR) 05/13/21 05/14/21 05/14/21 19:28 04:14 08:30 RBC Plt Count Lymph % (Auto) [place] % (Auto) Lymph # (Auto) Seg Neutrophils % D-Dimer Sodium Potassium 3.5 L Chloride Creatinine Glucose 133 H Ferritin 1812.0 H AST ALT Lactate Dehydrogenase Total Creatine Kinase C-Reactive Protein Albumin Coronavirus (PCR) Positive A 05/14/21 05/15/21 05/15/21 19:58 07:08 15:25 RBC Plt Count Lymph % (Auto) [place] % (Auto) Lymph # (Auto) Seg Neutrophils % D-Dimer 1990.62 H Sodium 133 L Potassium Chloride 97.1 L Creatinine 0.7 L 0.7 L Glucose 316 H 190 H Ferritin AST 117 H 89 H ALT 111 H 97 H Lactate Dehydrogenase Total Creatine Kinase C-Reactive Protein Albumin 3.0 L 3.2 L Coronavirus (PCR) 05/15/21 05/15/21 05/16/21 15:25 15:25 18:06 RBC Plt Count Lymph % (Auto) [place] % (Auto) Lymph # (Auto) Seg Neutrophils % D-Dimer Sodium Potassium 5.6 H D Chloride Creatinine 0.7 L Glucose 235 H Ferritin 2398.0 H AST 57 H ALT 75 H Lactate Dehydrogenase 705 H Total Creatine Kinase C-Reactive Protein 10.50 H Albumin 2.9 L Coronavirus (PCR) 05/17/21 06:58 RBC Plt Count Lymph % (Auto) [place] % (Auto) Lymph # (Auto) Seg Neutrophils % D-Dimer Sodium Potassium 5.1 H Chloride Creatinine 0.6 L Glucose 170 H Ferritin AST 83 H ALT 87 H Lactate Dehydrogenase Total Creatine Kinase C-Reactive Protein Albumin 3.0 L Coronavirus (PCR)
[2021-05-18] MEDS: SODIUM CHLORIDE 0.9% 50 ML IVPB IV SCH (23:07)
[2021-05-18] MEDS: REMDESIVIR 100 MG in SODIUM CHLORIDE 0.9% 250ML 250 ML IV SCH (23:07)
[2021-05-19] MEDS: ONDANSETRON 4 MG/2 ML INJ IV PRN
[2021-05-19] MEDS: hydrALAZINE 25 MG TAB PO SCH ×4 (06:28→21:27)
[2021-05-19] MEDS: ENOXAPARIN 120 MG/0.8 ML INJ SUB-Q SCH ×2 (11:19→21:27)
[2021-05-19] MEDS: FAMOTIDINE 20 MG TAB PO SCH ×2 (11:20→21:27)
[2021-05-19] MEDS: dexAMETHasone 4 MG/ML VIAL IV SCH (11:20)
--- NOTE | 2021-05-19 12:01 | Progress Note ---
Assessment and Plan 71 y/o male with acute respiratory failure, worsening secondary to COVID pneumonia. 05/19/21: Same recommendations as before. Guarded prognosis. Remains positive fluid almodovar. Needs better BP control 05/18/21: no new recommendations, same as yesterday. Very guarded prognosis. 1. Suggest increasing steroids to even higher doses given increasing oxygen requirement. Would recommend Solumedrol 125 mg IV q8 hours 2. Agree with Remdesivir and Actemra therapy 3. Suggest prone as much as possible during the day and sleep prone at night, maybe difficult to do now that on bipap therapy 4. Daily net negative state, so would limit volume and use lasix as needed to achieve this. 5. Monitor for chest pain or signs of cardiac instability. Have been seeing patients have CA even on full dose anticoagulation secondary to COVID 6. Guarded prognosis, given worsening oxygen requirement and obesity 7. Blood pressure control per primary team Subjective Date of service: 05/19/21 Interval history: Wore bipap last night. Now on HFNC and NRB combo sat only 92. Objective Vital Signs - 12hr 05/19/21 05/19/21 05/19/21 00:09 04:00 06:39 Temperature 97.8 F Pulse Rate 61 104 H Respiratory 29 H 24 Rate Blood Pressure 164/113 O2 Sat by Pulse 90 90 81 L Oximetry 05/19/21 08:00 Temperature Pulse Rate Respiratory Rate Blood Pressure O2 Sat by Pulse 92 Oximetry CBC and BMP: 05/13/21 19:28 05/17/21 06:58 ABG, PT/INR, D-dimer: PT/INR, D-dimer PT 13.3 Sec. (12.2-14.9) 05/13/21 19:28 INR 0.96 (0.87-1.13) 05/13/21 19:28 D-Dimer 1990.62 ng/mlDDU (0-234) H 05/15/21 15:25 Abnormal lab findings: Abnormal Labs 05/13/21 05/13/21 05/13/21 19:28 19:28 19:28 RBC 5.08 H Plt Count 109 L Lymph % (Auto) 11.1 L [place] % (Auto) 12.5 H Lymph # (Auto) 0.5 L Seg Neutrophils % 76.1 H D-Dimer 966.69 H Sodium 134 L Potassium Chloride 97.9 L Creatinine Glucose 132 H Ferritin AST 102 H ALT 82 H Lactate Dehydrogenase 500 H Total Creatine Kinase 312 H C-Reactive Protein 9.50 H Albumin 3.4 L Coronavirus (PCR) 05/13/21 05/14/21 05/14/21 19:28 04:14 08:30 RBC Plt Count Lymph % (Auto) [place] % (Auto) Lymph # (Auto) Seg Neutrophils % D-Dimer Sodium Potassium 3.5 L Chloride Creatinine Glucose 133 H Ferritin 1812.0 H AST ALT Lactate Dehydrogenase Total Creatine Kinase C-Reactive Protein Albumin Coronavirus (PCR) Positive A 05/14/21 05/15/21 05/15/21 19:58 07:08 15:25 RBC Plt Count Lymph % (Auto) [place] % (Auto) Lymph # (Auto) Seg Neutrophils % D-Dimer 1990.62 H Sodium 133 L Potassium Chloride 97.1 L Creatinine 0.7 L 0.7 L Glucose 316 H 190 H Ferritin AST 117 H 89 H ALT 111 H 97 H Lactate Dehydrogenase Total Creatine Kinase C-Reactive Protein Albumin 3.0 L 3.2 L Coronavirus (PCR) 05/15/21 05/15/21 05/16/21 15:25 15:25 18:06 RBC Plt Count Lymph % (Auto) [place] % (Auto) Lymph # (Auto) Seg Neutrophils % D-Dimer Sodium Potassium 5.6 H D Chloride Creatinine 0.7 L Glucose 235 H Ferritin 2398.0 H AST 57 H ALT 75 H Lactate Dehydrogenase 705 H Total Creatine Kinase C-Reactive Protein 10.50 H Albumin 2.9 L Coronavirus (PCR) 05/17/21 06:58 RBC Plt Count Lymph % (Auto) [place] % (Auto) Lymph # (Auto) Seg Neutrophils % D-Dimer Sodium Potassium 5.1 H Chloride Creatinine 0.6 L Glucose 170 H Ferritin AST 83 H ALT 87 H Lactate Dehydrogenase Total Creatine Kinase C-Reactive Protein Albumin 3.0 L Coronavirus (PCR)
--- NOTE | 2021-05-19 12:08 | Progress Note ---
Assessment and Plan Cultures: SARS CoV2 PCR positive Assessment: 71-year-old male with history of hypertension, obesity, admitted on 05/13/2021 secondary to 3-day history of cough, fever, chills, malaise, hiccups and shortness of breath, received first dose of Moderna vaccine on 05/09/2021: #Sepsis: secondary to bilateral pneumonia from COVID-19 #COVID-19 pneumonia: CXR with multifocal bilateral pneumonia. Infllammatory markers elevated. D-dimer 966. Ferritin 8012. CRP 9.5. #Acute hypoxemic respiratory failure: initially requiring Salter nasal cannula, now HFNC/BiPAP. #Elevated LFTs: from COVID Recommendations: -Continue Dexamethasone IV/PO daily for 10 days, higher dose due to morbid obesity and high O2 requirements -completed IV remdesivir -Actemra ordered 05/16/2021, unclear if administered given shortages, will check with pharmacy -Monitor inflammatory markers - Ddimer, CRP -Continue anticoagulation per System Protocol -guarded prognosis Quincy Miller MD, FACP [facility], [place], [facility] O: [phone] F: [phone] Subjective Date of service: 05/19/21 Interval history: Afebrile. Remains on high flow nasal cannula, on BiPAP at times with restlessness. Objective - Exam Narrative Exam: Physical Exam (reviewed in chart to minimize risk of transmission) Constitutional: deferred Head, Ears, Nose: deferred Eyes: deferred Neck: deferred Oral: deferred Cardiovascular: deferred Respiratory: deferred GI: deferred Musculoskeletal: deferred Skin: deferred Hem/Lymphatic: deferred Psych: deferred Neurological: deferred - Constitutional Vitals: Vital Signs Temp Pulse Resp BP Pulse Ox 97.8 F 104 H 24 164/113 92 05/19/21 06:39 05/19/21 06:39 05/19/21 06:39 05/19/21 06:39 05/19/21 08:00 Temperature -Last 24 Hours Temperature 97.8 F Temperature 97.4 F Temperature 99.4 F - Labs CBC & Chem 7: 05/13/21 19:28 05/17/21 06:58
--- NOTE | 2021-05-19 19:06 | Progress Note ---
Assessment and Plan Assessment and plan: -- Acute respiratory failure with severe hypoxia Status: Acute Today patient is requiring high flow nasal cannula 40 L/100% FiO2 100% FiO2 nonrebreather/O2 sat 92% Continue high-dose dexamethasone 8 mg IV daily per ID Continue DuoNeb by nebulizer every 4 hours. Prone position as much as possible Home O2 evaluation prior to discharge Consider transferring to [facility] for close observation if no improvement Pulmonary following, patient is critically ill with very poor prognosis --Severe COVID-19 virus infection Status: Acute Contact and droplet isolation, dexamethasone 8 mg IV daily. Completed remdesivir per protocol,check inflammatory markers Patient is on BiPAP/100% FiO2 Wean as tolerated, home O2 evaluation prior to discharge Prone position as needed, follow pulmonary evaluation ID recommended Actemra pending Patient is critically ill with very poor prognosis Critical care time 45 minutes The high probability of a clinically significant, sudden or life threatening deterioration of the [pulmonary, endocrine, and metabolic] system(s) required my full and direct attention, intervention and personal management. The aggregate critical care time was [45] minutes. This time is in addition to time spent performing reported procedures but includes the following: [x] Data Review and interpretation [x] Patient assessment and monitoring of vital signs [x] Documentation [x] Medication orders and management --Bilateral pneumonia Status: Acute Possible community-acquired pneumonia versus Covid pneumonia Empiric antibiotics Rocephin and Zithromax, DC due to normal procalcitonin levels --Elevated D-dimers; worsening D-dimers CTA chest negative for PE Lower extremity venous Doppler negative for DVT However due to increase oxygen requirement and severe hypoxemia Will treat with empiric therapeutic Lovenox Closely monitor, I checked with the pharmacy -- Hypertension/moderate control Status: Acute Continue current antihypertensives As needed hydralazine --Obesity; BMI 38.4 Status: Chronic Patient needs diet modification, lifestyle changes, exercise as tolerated and weight reduction When medically stable --DVT prophylaxis; Status: Acute Subcu Heparin 5000 units subcu every 8 hours . We will closely monitor the patient and adjust management as needed Truss Designer recommendations noted and appreciated Plan of care reviewed with the patient and his nurse Brief history and daily hospital course: 74-year-old -[place] male patient was admitted with shortness of breath, hypoxic respiratory failure Requiring supplemental oxygen, high suspicion for COVID-19: A PCR test is pending 05/14/2021; Follow springer PCR test 38 oxygen to more than 90% Wean as toleratedID following Consider pulmonary evaluation if needed 05/15/2021; Patient tested positive for COVID-19 Increased dose of dexamethasone to 8 mg, remdesivir per protocol Worsening D-dimers, negative PE, negative DVT Sudden increased requirement of oxygen 40 L high flow nasal cannula 100% FiO2 I discussed with pharmacist, will start therapeutic dose of Lovenox 05/16/2021; Patient is severely hypoxemic requiring HFNC oxygen 40 L/100%/O2 sats 92 We will consult pulmonary, poor prognosis 05/17/2021; patient is on BiPAP with 100% FiO2 Severely hypoxemic, follow pulmonary evaluation Consider transfer to [facility] for close observation 05/18/2021; Poor prognosis, follow pulmonary recommendations ID recommended Actemra, pending Patient is critically ill with poor prognosis Requiring continuous BiPAP 100% FiO2 05/19/2021; Patient is on high flow nasal cannula oxygen 40 L/100% FiO2/93% O2 sats Critically ill very poor prognosis, wean as tolerated Follow ID and pulmonary recommendations Critically ill, poor prognosis History Interval history: I seen and examined the patient at the bedside Patient's chart and medications reviewed Patient is severely hypoxemic in mild distress 40 L high flow nasal cannula oxygen/100% nonrebreather Intermittent BiPAP Very poor prognosis Hospitalist Physical - Constitutional Vitals: Temp Pulse Resp BP Pulse Ox 98.4 F 96 H 24 171/103 91 05/19/21 11:51 05/19/21 13:57 05/19/21 11:51 05/19/21 13:57 05/19/21 11:56 General appearance: Present: mild distress, well-nourished, obese, other (High flow nasal cannula oxygen intermittent BiPAP) - EENT Eyes: Present: PERRL, EOM intact - Neck Neck: Present: supple, normal ROM - Respiratory Respiratory effort: labored Respiratory: bilateral: diminished, rhonchi, negative: rales, wheezing - Cardiovascular Rhythm: regular Heart Sounds: Present: S1 & S2 - Extremities Extremities: no ischemia, No edema - Abdominal General gastrointestinal: soft, non-tender, non-distended, normal bowel sounds - Integumentary Integumentary: Present: clear, warm - Psychiatric Psychiatric: other (Lethargic noncommunicative) - Neurologic Neurologic: CNII-XII intact, moves all extremities HEART Score - HEART Score Troponin: Troponin T < 0.010 ng/mL (0.00-0.029) 05/13/21 19:28 Results - Labs CBC & Chem 7: 05/13/21 19:28 05/17/21 06:58 Labs: Laboratory Last Values WBC 4.6 K/mm3 (4.5-11.0) 05/13/21 19: RBC 5.08 M/mm3 (3.65-5.03) H 05/13/21 19:28 Hgb 14.5 gm/dl (11.8-15.2) 05/13/21 19: Hct 42.8 % (35.5-45.6) 05/13/21 19: MCV 84 fl (84-94) 05/13/21 19: MCH 29 pg (28-32) 05/13/21: MCHC 34 % (32-34) 05/13/21: RDW 14.4 % (13.2-15.2) 05/13/21 19: Plt Count 109 K/mm3 (140-440) L 05/13/21 19: Lymph % (Auto) 11.1 % (13.4-35.0) L 05/13/21 19: [place] % (Auto) 12.5 % (0.0-7.3) H 05/13/21 19: Eos % (Auto) 0.0 % (0.0-4.3) 05/13/21: Baso % (Auto) 0.3 % (0.0-1.8) 05/13/21: Lymph # (Auto) 0.5 K/mm3 (1.2-5.4) L 05/13/21 19: [place] # (Auto) 0.6 K/mm3 (0.0-0.8) 05/13/21 19: Eos # (Auto) 0.0 K/mm3 (0.0-0.4) 05/13/21 19: Baso # (Auto) 0.0 K/mm3 (0.0-0.1) 05/13/21 19: Seg Neutrophils % 76.1 % (40.0-70.0) H 05/13/21 19:28 Seg Neutrophils # 3.5 K/mm3 (1.8-7.7) 05/13/21 19:28 PT 13.3 Sec. (12.2-14.9) 05/13/21 19:28 INR 0.96 (0.87-1.13) 05/13/21 19:28 D-Dimer 1990.62 ng/mlDDU (0-234) H 05/15/21 15:25 Sodium 142 mmol/L (137-145) 05/17/21 06:58 Potassium 5.1 mmol/L (3.6-5.0) H 05/17/21 06:58 Chloride 103.3 mmol/L (98-107) 05/17/21 06:58 Carbon Dioxide 27 mmol/L (22-30) 05/17/21 06:58 Anion Gap 17 mmol/L 05/17/21 06:58 BUN 15 mg/dL (9-20) 05/17/21 06:58 Creatinine 0.6 mg/dL (0.8-1.3) L 05/17/21 06:58 Estimated GFR > 60 ml/min 05/17/21 06:58 BUN/Creatinine Ratio 25 % 05/17/21 06:58 Glucose 170 mg/dL (75-100) H 05/17/21 06:58 Lactic Acid 1.40 mmol/L (0.7-2.0) 05/13/21 19:28 Calcium 9.4 mg/dL (8.4-10.2) 05/17/21 06:58 Magnesium 2.20 mg/dL (1.7-2.3) 05/13/21 19:28 Ferritin 2398.0 ng/mL (30.0-300.0) H 05/15/21 15:25 Total Bilirubin 0.50 mg/dL (0.1-1.2) 05/17/21 06:58 AST 83 units/L (5-40) H 05/17/21 06:58 ALT 87 units/L (7-56) H 05/17/21 06:58 Alkaline Phosphatase 101 units/L (35-129) 05/17/21 06:58 Lactate Dehydrogenase 705 units/L (91-180) H 05/15/21 15:25 Total Creatine Kinase 312 units/L (55-170) H 05/13/21 19:28 Troponin T < 0.010 ng/mL (0.00-0.029) 05/13/21 19:28 C-Reactive Protein 10.50 mg/dL (0.00-1.30) H 05/15/21 15:25 Total Protein 7.9 g/dL (6.3-8.2) 05/17/21 06:58 Albumin 3.0 g/dL (3.9-5) L 05/17/21 06:58 Albumin/Globulin Ratio 0.6 % 05/17/21 06:58 Procalcitonin < 0.05 ng/mL (<0.15) 05/13/21 19:28 Coronavirus (PCR) Positive (Negative) A 05/14/21 08:30 [place]/IV: Voiding Method Urinal Active Medications - Current Medications Current Medications: Generic Name Dose Route Start Last Admin Trade Name Freq PRN Reason Stop Dose Admin Acetaminophen 650 mg 05/13/21 22:39 05/14/21 11:16 Acetaminophen 325 Mg Tab PO 650 mg Q4H PRN Administration Pain MILD(1-3)/Fever >100.5/TYLER Albuterol 2.5 mg 05/13/21 22:39 Albuterol 2.5 Mg/3 Ml Nebu IH Q4HRT PRN Shortness Of Breath Chlorpromazine HCl 10 mg 05/15/21 13:21 05/15/21 14:47 Chlorpromazine 10 Mg Tab PO 10 mg Q4H PRN Administration Hiccups Dexamethasone 8 mg 05/15/21 15:09 05/19/21 11:20 Dexamethasone 4 Mg/Ml Vial IV 05/22/21 10:01 8 mg DAILY EVELYN Administration Enoxaparin Sodium 120 mg 05/15/21 22:00 05/19/21 11:19 Enoxaparin 120 Mg/0.8 Ml Inj 1 mg/kg (120 mg) 120 mg SUB-Q Administration Q12HR [facility] Protocol Famotidine 20 mg 05/14/21 10:00 05/19/21 11:20 Famotidine 20 Mg Tab PO 20 mg BID EVELYN Administration Hydralazine HCl 10 mg 05/13/21 22:42 05/17/21 19:15 Hydralazine 20 Mg/1 Ml Inj IV 10 mg Q6H PRN Administration Blood Pressure Hydralazine HCl 25 mg 05/16/21 14:00 05/19/21 13:57 Hydralazine 25 Mg Tab PO 25 mg Q8HR EVELYN Administration Hydromorphone HCl 0.5 mg 05/13/21 22:39 Hydromorphone 1 Mg/1 Ml Inj IV Q3H PRN Pain , Severe (7-10) TOCILIZUMAB 800 mg/ Sodium 140 mls @ 120 mls/hr 05/16/21 12:29 Chloride IV 05/16/21 13:38 ONCE ONE Ondansetron HCl 4 mg 05/13/21 22:39 05/19/21 00:00 Ondansetron 4 Mg/2 Ml Inj IV 4 mg Q8H PRN Administration Nausea And Vomiting Oxycodone/Acetaminophen 1 tab 05/13/21 22:39 05/18/21 10:42 Oxycodone /Acetaminophen 5-325mg Tab PO 1 tab Q6H PRN Administration Pain, Moderate (4-6) Nutrition/Malnutrition Assess - Dietary Evaluation Nutrition/Malnutrition Findings: Nutrition Notes Start: 05/15/21 14:10 Freq: Status: Active Protocol: Document 05/15/21 14:18 GB (Rec: 05/15/21 14:26 GB [email or web address]) Nutrition Notes Need for Assessment generated from: MD Order Initial or Follow up Assessment Current Diagnosis Respiratory Failure Other Pertinent Diagnosis COVID+ Current Diet cardiac diet Labs/Tests 05/15: creatinine 0.7 low x2 events, glucose 190 elevated [id number], AST 89 and ALT 97 both elevated and showing improvement Pertinent Medications remdesivir, NaCl Height 5 ft 9 in Weight 117.934 kg [place] Body Weight (kg) 72.72 BMI 38.4 Intake Prior to Admission Poor Weight change and time frame No reported weight change Weight Status Obese Subjective/Other Information on nasal cannula, restrictions with breathing may reduce PO energy intake Percent of energy/protein needs met: PO intake 75% or greater of meals will meet 80% or greater of estimated energy needs. Burn Absent Trauma Absent GI Symptoms None Food Allergy No Skin Integrity/Comment No reported complications Minimum of two criteria No Energy Intake (non-severe) <75% Estimated Energy Requirement >7 days #1 Nutrition Diagnosis Predicted suboptimal energy intake Etiology respiratory failure As Evidenced by Signs and Symptoms COVID +, reported poor po intake r/t decreased appetite Is patient on ventilator? No Is Patient Ambulatory and/or Out of Bed Yes REE-(Waller-St. Jeor-ambulatory/OOB) [ 2489.136 [id number]] Kcal/Kg value to use for calculation 22 Approximate Energy Requirements Using 2595 kcal/Kg Calculation Used for Recommendations Kcal/kg Additional Notes Protein: 0.8-1 g/kg @ 117k-117g Fluids: 1 ml/kcal or per MD Nutrition Intervention Change Diet Order: continue Nutrition Support: n/a Add Supplement/Snack (indicate name/kcal add ensure enlive BID /protein ) Provides kCal: 700 Provides Protein (gm) 40 Goal #1 PO intake of meals to improve to 75% or greater TID daily during LOS Goal #2 PO intake of nutritional supplement beverages to be 50% or greater BID daily during LOS Goal #3 Weight to maintain within +/-3 % current weight during LOS Follow-Up By: 05/20/21 Additional Comments Nursing staff monitor/record PO intake of meals and supplements.
[2021-05-20] MEDS: hydrALAZINE 20 MG/1 ML INJ IV PRN ×2 (01:00→15:54)
[2021-05-20] MEDS: hydrALAZINE 25 MG TAB PO SCH ×4 (06:42→22:34)
--- NOTE | 2021-05-20 09:05 | Progress Note ---
Assessment and Plan 71 y/o male with acute respiratory failure, worsening secondary to COVID pneumonia. 05/20/21: Same recs as on initial consult. Prone, bP control, consider increasing steroids as listed below, consider lasix. Very very guarded prognosis. 05/19/21: Same recommendations as before. Guarded prognosis. Remains positive fluid almodoavr. Needs better BP control 05/18/21: no new recommendations, same as yesterday. Very guarded prognosis. 1. Suggest increasing steroids to even higher doses given increasing oxygen requirement. Would recommend Solumedrol 125 mg IV q8 hours 2. Agree with Remdesivir and Actemra therapy 3. Suggest prone as much as possible during the day and sleep prone at night, maybe difficult to do now that on bipap therapy 4. Daily net negative state, so would limit volume and use lasix as needed to achieve this. 5. Monitor for chest pain or signs of cardiac instability. Have been seeing patients have [place] even on full dose anticoagulation secondary to COVID 6. Guarded prognosis, given worsening oxygen requirement and obesity 7. Blood pressure control per primary team Subjective Date of service: 05/20/21 Interval history: Remains on bipap therapy with elevated BP's and marginal sats. Positive fluid balance as well. Objective Vital Signs - 12hr 05/19/21 05/19/21 05/19/21 22:26 22:27 23:00 Temperature Pulse Rate 83 Respiratory 24 Rate Blood Pressure O2 Sat by Pulse 94 94 91 Oximetry 05/20/21 05/20/21 05/20/21 00:48 02:08 02:43 Temperature 97.9 F Pulse Rate 60 60 Respiratory 22 22 Rate Blood Pressure 201/104 157/105 O2 Sat by Pulse 92 95 Oximetry 05/20/21 05:03 Temperature 98.7 F Pulse Rate 104 H Respiratory 24 Rate Blood Pressure 171/101 O2 Sat by Pulse 90 Oximetry CBC and BMP: 05/13/21 19:28 05/17/21 06:58 ABG, PT/INR, D-dimer: PT/INR, D-dimer PT 13.3 Sec. (12.2-14.9) 05/13/21 19:28 INR 0.96 (0.87-1.13) 05/13/21 19:28 D-Dimer 1990.62 ng/mlDDU (0-234) H 05/15/21 15:25 Abnormal lab findings: Abnormal Labs 05/13/21 05/13/21 05/13/21 19:28 19:28 19:28 RBC 5.08 H Plt Count 109 L Lymph % (Auto) 11.1 L [place] % (Auto) 12.5 H Lymph # (Auto) 0.5 L Seg Neutrophils % 76.1 H D-Dimer 966.69 H Sodium 134 L Potassium Chloride 97.9 L Creatinine Glucose 132 H Ferritin AST 102 H ALT 82 H Lactate Dehydrogenase 500 H Total Creatine Kinase 312 H C-Reactive Protein 9.50 H Albumin 3.4 L Coronavirus (PCR) 05/13/21 05/14/21 05/14/21 19:28 04:14 08:30 RBC Plt Count Lymph % (Auto) [place] % (Auto) Lymph # (Auto) Seg Neutrophils % D-Dimer Sodium Potassium 3.5 L Chloride Creatinine Glucose 133 H Ferritin 1812.0 H AST ALT Lactate Dehydrogenase Total Creatine Kinase C-Reactive Protein Albumin Coronavirus (PCR) Positive A 05/14/21 05/15/21 05/15/21 19:58 07:08 15:25 RBC Plt Count Lymph % (Auto) [place] % (Auto) Lymph # (Auto) Seg Neutrophils % D-Dimer 1990.62 H Sodium 133 L Potassium Chloride 97.1 L Creatinine 0.7 L 0.7 L Glucose 316 H 190 H Ferritin AST 117 H 89 H ALT 111 H 97 H Lactate Dehydrogenase Total Creatine Kinase C-Reactive Protein Albumin 3.0 L 3.2 L Coronavirus (PCR) 05/15/21 05/15/21 05/16/21 15:25 15:25 18:06 RBC Plt Count Lymph % (Auto) [place] % (Auto) Lymph # (Auto) Seg Neutrophils % D-Dimer Sodium Potassium 5.6 H D Chloride Creatinine 0.7 L Glucose 235 H Ferritin 2398.0 H AST 57 H ALT 75 H Lactate Dehydrogenase 705 H Total Creatine Kinase C-Reactive Protein 10.50 H Albumin 2.9 L Coronavirus (PCR) 05/17/21 06:58 RBC Plt Count Lymph % (Auto) [place] % (Auto) Lymph # (Auto) Seg Neutrophils % D-Dimer Sodium Potassium 5.1 H Chloride Creatinine 0.6 L Glucose 170 H Ferritin AST 83 H ALT 87 H Lactate Dehydrogenase Total Creatine Kinase C-Reactive Protein Albumin 3.0 L Coronavirus (PCR)
[2021-05-20 10:55] LABS: Hematocrit 48.3 % (35.5-45.6); Mean Corpuscular HGB Conc 33 % (32-34); Mean Corpuscular Volume 85 fl (84-94); Platelet Count 178 K/mm3 (140-440); Red Blood Count 5.67 M/mm3 (3.65-5.03); Red Cell Distribution Width 14.2 % (13.2-15.2)
[2021-05-20 10:56] LABS: Blood Urea Nitrogen 14 mg/dL (9-20); Calcium 9.1 mg/dL (8.4-10.2); Hemolysis Index 14
[2021-05-20 11:03] LABS: BUN/Creatinine Ratio 23
[2021-05-20] MEDS: amLODIPine 10 MG TAB PO SCH (11:52)
[2021-05-20] MEDS: dexAMETHasone 4 MG/ML VIAL IV SCH (11:52)
[2021-05-20] MEDS: FAMOTIDINE 20 MG TAB PO SCH ×2 (11:52→22:34)
[2021-05-20] MEDS: ENOXAPARIN 120 MG/0.8 ML INJ SUB-Q SCH ×2 (11:55→22:33)
--- NOTE | 2021-05-20 14:13 | Progress Note ---
Assessment and Plan Cultures: SARS CoV2 PCR positive Assessment: 71-year-old male with history of hypertension, obesity, admitted on 05/13/2021 secondary to 3-day history of cough, fever, chills, malaise, hiccups and shortness of breath, received first dose of Moderna vaccine on 05/09/2021: #Sepsis: secondary to bilateral pneumonia from COVID-19 #COVID-19 pneumonia: CXR with multifocal bilateral pneumonia. Infllammatory stella ers elevated. D-dimer 966. Ferritin 8012. CRP 9.5. #Acute hypoxemic respiratory failure: initially requiring Salter nasal cannula, now HFNC/BiPAP. #Elevated LFTs: from COVID Recommendations: -Continue Dexamethasone IV/PO daily for 10 days, higher dose due to morbid obesity and high O2 requirements -completed IV remdesivir -Actemra ordered 05/16/2021, d/w pharmacy, not administered yet due to shortages -Monitor inflammatory markers - Ddimer, CRP -Continue anticoagulation per System Protocol -extremely poor prognosis Quincy Miller MD, FACP [facility] O: [phone] F: [phone] Subjective Date of service: 05/20/21 Interval history: Afebrile. Remains on BIPAP/HFNC + NRB. Objective - Exam Narrative Exam: Physical Exam (reviewed in chart to minimize risk of transmission) Constitutional: deferred Head, Ears, Nose: deferred Eyes: deferred Neck: deferred Oral: deferred Cardiovascular: deferred Respiratory: deferred GI: deferred Musculoskeletal: deferred Skin: deferred Hem/Lymphatic: deferred Psych: deferred Neurological: deferred - Constitutional Vitals: Vital Signs Temp Pulse Resp BP Pulse Ox 97.6 F 102 H 21 163/100 85 05/20/21 11:12 05/20/21 11:12 05/20/21 11:12 05/20/21 11:12 05/20/21 11:12 Temperature -Last 24 Hours Temperature 97.6 F Temperature 98.7 F Temperature 97.9 F Temperature 97.3 F - Labs CBC & Chem 7: 05/20/21 10:23 05/20/21 10:23 Labs: Abnormal lab results 05/20/21 05/20/21 Range/Units 10:23 10:23 RBC 5.67 H (3.65-5.03) M/mm3 Hgb 16.0 H (11.8-15.2) gm/dl Hct 48.3 H (35.5-45.6) % Sodium 146 H (137-145) mmol/L Chloride 108.2 H (98-107) mmol/L Creatinine 0.6 L (0.8-1.3) mg/dL Glucose 185 H (75-100) mg/dL
--- NOTE | 2021-05-20 15:10 | Progress Note ---
Assessment and Plan --Severe COVID-19 virus infection Contact and droplet isolation, dexamethasone 8 mg IV daily. Completed remdesivir per protocol,check inflammatory markers Patient is on BiPAP/100% FiO2 Wean as tolerated, home O2 evaluation prior to discharge Prone position as needed, follow pulmonary evaluation ID recommended Actemra pending Patient is critically ill with very poor prognosis -- Acute respiratory failure with severe hypoxia patient is on bipap requiring 40 L/100% FiO2 Continue high-dose dexamethasone 8 mg IV daily per ID Continue DuoNeb by nebulizer every 4 hours. Prone position as much as possible Consider transferring to [facility] for close observation if no improvement Pulmonary following, patient is critically ill with very poor prognosis Critical care time 45 minutes The high probability of a clinically significant, sudden or life threatening deterioration of the [pulmonary, endocrine, and metabolic] system(s) required my full and direct attention, intervention and personal management. The aggregate critical care time was [45] minutes. This time is in addition to time spent performing reported procedures but includes the following: [x] Data Review and interpretation [x] Patient assessment and monitoring of vital signs [x] Documentation [x] Medication orders and management --Bilateral pneumonia Possible community-acquired pneumonia versus Covid pneumonia s/p Empiric antibiotics Rocephin and Zithromax, DC due to normal procalcitonin levels --Elevated D-dimers; worsening D-dimers CTA chest negative for PE Lower extremity venous Doppler negative for DVT However due to increase oxygen requirement and severe hypoxemia Will treat with empiric therapeutic Lovenox Closely monitor, I checked with the pharmacy -- Hypertension/moderate control Continue current antihypertensives As needed hydralazine --Obesity; BMI 38.4 Patient needs diet modification, lifestyle changes, exercise as tolerated and weight reduction When medically stable --DVT prophylaxis; Subcu Heparin 5000 units subcu every 8 hours . 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 Plan of care reviewed with the patient and his nurse Brief history and daily hospital course: 74-year-old -Togolese male patient was admitted with shortness of breath, hypoxic respiratory failure Requiring supplemental oxygen, high suspicion for COVID-19: A PCR test is pending 05/14/2021; Follow springer PCR test 38 oxygen to more than 90% Wean as toleratedID following Consider pulmonary evaluation if needed 05/15/2021; Patient tested positive for COVID-19 Increased dose of dexamethasone to 8 mg, remdesivir per protocol Worsening D-dimers, negative PE, negative DVT Sudden increased requirement of oxygen 40 L high flow nasal cannula 100% FiO2 I discussed with pharmacist, will start therapeutic dose of Lovenox 05/16/2021; Patient is severely hypoxemic requiring HFNC oxygen 40 L/100%/O2 sats 92 We will consult pulmonary, poor prognosis 05/17/2021; patient is on BiPAP with 100% FiO2 Severely hypoxemic, follow pulmonary evaluation Consider transfer to [facility] for close observation 05/18/2021; Poor prognosis, follow pulmonary recommendations ID recommended Actemra, pending Patient is critically ill with poor prognosis Requiring continuous BiPAP 100% FiO2 05/19/2021; Patient is on high flow nasal cannula oxygen 40 L/100% FiO2/93% O2 sats Critically ill very poor prognosis, wean as tolerated Follow ID and pulmonary recommendations Critically ill, poor prognosis 05/20/21: Remains on high flow nasal cannula O2, poor prognosis. cont supportive care. pulmonary and ID following Subjective Date of service: 05/20/21 Interval history: patent seen and examined at the bedside Patient's chart and medications reviewed patient remains on BiPAP 100% FiO2 Mild distress, severely hypoxemic Discussed with RN at the bedside Objective - Exam Narrative Exam: General appearance: Present: mild distress, well-nourished, obese, other (On BiPAP) - EENT Eyes: Present: PERRL, EOM intact - Neck Neck: Present: supple, normal ROM - Respiratory Respiratory effort: normal Respiratory: bilateral: diminished, rhonchi, negative: rales, wheezing - Cardiovascular Rhythm: regular Heart Sounds: Present: S1 & S2 - Extremities Extremities: no ischemia, No edema - Abdominal General gastrointestinal: soft, non-tender, non-distended, normal bowel sounds - Integumentary Integumentary: Present: clear, warm - Psychiatric Psychiatric: cooperative - Neurologic Neurologic: moves all extremities - Constitutional Vitals: Vital Signs - 12hr 05/20/21 05/20/21 05:03 11:12 Temperature 98.7 F 97.6 F Pulse Rate 104 H 102 H Respiratory 24 21 Rate Blood Pressure 171/101 163/100 O2 Sat by Pulse 90 85 Oximetry - Labs CBC & Chem 7: 05/20/21 10:23 05/20/21 10:23 Labs: Abnormal lab results 05/20/21 05/20/21 Range/Units 10:23 10:23 RBC 5.67 H (3.65-5.03) M/mm3 Hgb 16.0 H (11.8-15.2) gm/dl Hct 48.3 H (35.5-45.6) % Sodium 146 H (137-145) mmol/L Chloride 108.2 H (98-107) mmol/L Creatinine 0.6 L (0.8-1.3) mg/dL Glucose 185 H (75-100) mg/dL HEART Score - HEART Score Troponin: Troponin T < 0.010 ng/mL (0.00-0.029) 05/13/21 19:28
[2021-05-21] MEDS: hydrALAZINE 25 MG TAB PO SCH ×3 (07:02→22:01)
[2021-05-21] MEDS ORDERED: MORPHINE 4 MG/1 ML INJ IV STA (08:43)
[2021-05-21] MEDS ORDERED: LORazepam 2 MG/ML VIAL IV ONE ×2 (09:00→11:15)
[2021-05-21] MEDS ORDERED: MORPHINE 2 MG/1 ML INJ IV ONE (09:00)
[2021-05-21] MEDS: FAMOTIDINE 20 MG TAB PO SCH ×2 (09:38→22:01)
[2021-05-21] MEDS: amLODIPine 10 MG TAB PO SCH (09:39)
[2021-05-21] MEDS: ENOXAPARIN 120 MG/0.8 ML INJ SUB-Q SCH ×2 (09:40→22:00)
[2021-05-21] MEDS: dexAMETHasone 4 MG/ML VIAL IV SCH (09:40)
[2021-05-21] MEDS ORDERED: cloNIDine TTS 0.2 MG/24 HR PATCH TD SCH (12:00)
--- NOTE | 2021-05-21 12:03 | Progress Note ---
Assessment and Plan Cultures: SARS CoV2 PCR positive Assessment: 71-year-old male with history of hypertension, obesity, admitted on 05/13/2021 secondary to 3-day history of cough, fever, chills, malaise, hiccups and shortness of breath, received first dose of Moderna vaccine on 05/09/2021: #Sepsis: secondary to bilateral pneumonia from COVID-19 #COVID-19 pneumonia: CXR with multifocal bilateral pneumonia. Infllammatory stella ers elevated. D-dimer 966. Ferritin 8012. CRP 9.5. #Acute hypoxemic respiratory failure: initially requiring Salter nasal cannula, now HFNC/BiPAP. #Elevated LFTs: from COVID Recommendations: -Received Actemra on 05/21/2021 -Continue Dexamethasone IV/PO daily for 10 days, higher dose due to morbid obesity and high O2 requirements -completed IV remdesivir -Monitor inflammatory markers - Ddimer, CRP -Continue anticoagulation per System Protocol -extremely poor prognosis Quincy Miller MD, FACP [facility] O: [phone] F: [phone] Subjective Date of service: 05/21/21 Interval history: No fever. Remains on high flow nasal cannula/BiPAP. Received Actemra on 05/21/2021. Objective - Exam Narrative Exam: Physical Exam (reviewed in chart to minimize risk of transmission) Constitutional: deferred Head, Ears, Nose: deferred Eyes: deferred Neck: deferred Oral: deferred Cardiovascular: deferred Respiratory: deferred GI: deferred Musculoskeletal: deferred Skin: deferred Hem/Lymphatic: deferred Psych: deferred Neurological: deferred - Constitutional Vitals: Vital Signs Temp Pulse Resp BP Pulse Ox 98.1 F 102 H 24 169/123 93 05/21/21 05:37 05/21/21 05:37 05/21/21 09:00 05/21/21 05:37 05/21/21 09:00 Temperature -Last 24 Hours Temperature 98.1 F Temperature 97.5 F Temperature 98.1 F - Labs CBC & Chem 7: 05/20/21 10:23 05/20/21 10:23 Labs: Abnormal lab results 05/21/21 05/21/21 Range/Units 04:36 04:36 D-Dimer 8906.38 H (0-234) ng/mlDDU C-Reactive Protein 11.30 H (0.00-1.30) mg/dL
[2021-05-21] MEDS ORDERED: TOCILIZUMAB 810 MG in SODIUM CHLORIDE 0.9% 100 ML IV ONE (12:30)
--- NOTE | 2021-05-21 13:21 | Progress Note ---
Assessment and Plan 71 y/o male with acute respiratory failure, worsening secondary to COVID pneumonia. 05/21/21: Continue Bipap QHS and HFNC during the day. Please consider the other recs, will defer to primary team. 05/20/21: Same recs as on initial consult. Prone, bP control, consider increasing steroids as listed below, consider lasix. Very very guarded prognosis. 05/19/21: Same recommendations as before. Guarded prognosis. Remains positive fluid almodovar. Needs better BP control 05/18/21: no new recommendations, same as yesterday. Very guarded prognosis. 1. Suggest increasing steroids to even higher doses given increasing oxygen requirement. Would recommend Solumedrol 125 mg IV q8 hours 2. Agree with Remdesivir and Actemra therapy 3. Suggest prone as much as possible during the day and sleep prone at night, maybe difficult to do now that on bipap therapy 4. Daily net negative state, so would limit volume and use lasix as needed to achieve this. 5. Monitor for chest pain or signs of cardiac instability. Have been seeing patients have [place] even on full dose anticoagulation secondary to COVID 6. Guarded prognosis, given worsening oxygen requirement and obesity 7. Blood pressure control per primary team Subjective Date of service: 05/21/21 Interval history: no acute event. Wore bipap last night Objective Vital Signs - 12hr 05/21/21 05/21/21 05/21/21 05:37 09:00 09:34 Temperature 98.1 F Pulse Rate 102 H Respiratory 34 H 24 Rate Blood Pressure 169/123 142/99 O2 Sat by Pulse 92 93 Oximetry 05/21/21 11:11 Temperature 99.0 F Pulse Rate 110 H Respiratory 24 Rate Blood Pressure 139/93 O2 Sat by Pulse 92 Oximetry CBC and BMP: 05/20/21 10:23 05/20/21 10:23 ABG, PT/INR, D-dimer: PT/INR, D-dimer PT 13.3 Sec. (12.2-14.9) 05/13/21 19:28 INR 0.96 (0.87-1.13) 05/13/21 19:28 D-Dimer 8906.38 ng/mlDDU (0-234) H 05/21/21 04:36 Abnormal lab findings: Abnormal Labs 05/13/21 05/13/21 05/13/21 19:28 19:28 19:28 RBC 5.08 H Hgb Hct Plt Count 109 L Lymph % (Auto) 11.1 L [place] % (Auto) 12.5 H Lymph # (Auto) 0.5 L Seg Neutrophils % 76.1 H D-Dimer 966.69 H Sodium 134 L Potassium Chloride 97.9 L Creatinine Glucose 132 H Ferritin AST 102 H ALT 82 H Lactate Dehydrogenase 500 H Total Creatine Kinase 312 H C-Reactive Protein 9.50 H Albumin 3.4 L Coronavirus (PCR) 05/13/21 05/14/21 05/14/21 19:28 04:14 08:30 RBC Hgb Hct Plt Count Lymph % (Auto) [place] % (Auto) Lymph # (Auto) Seg Neutrophils % D-Dimer Sodium Potassium 3.5 L Chloride Creatinine Glucose 133 H Ferritin 1812.0 H AST ALT Lactate Dehydrogenase Total Creatine Kinase C-Reactive Protein Albumin Coronavirus (PCR) Positive A 05/14/21 05/15/21 05/15/21 19:58 07:08 15:25 RBC Hgb Hct Plt Count Lymph % (Auto) [place] % (Auto) Lymph # (Auto) Seg Neutrophils % D-Dimer 1990.62 H Sodium 133 L Potassium Chloride 97.1 L Creatinine 0.7 L 0.7 L Glucose 316 H 190 H Ferritin AST 117 H 89 H ALT 111 H 97 H Lactate Dehydrogenase Total Creatine Kinase C-Reactive Protein Albumin 3.0 L 3.2 L Coronavirus (PCR) 05/15/21 05/15/21 05/16/21 15:25 15:25 18:06 RBC Hgb Hct Plt Count Lymph % (Auto) [place] % (Auto) Lymph # (Auto) Seg Neutrophils % D-Dimer Sodium Potassium 5.6 H D Chloride Creatinine 0.7 L Glucose 235 H Ferritin 2398.0 H AST 57 H ALT 75 H Lactate Dehydrogenase 705 H Total Creatine Kinase C-Reactive Protein 10.50 H Albumin 2.9 L Coronavirus (PCR) 05/17/21 05/20/21 05/20/21 06:58 10:23 10:23 RBC 5.67 H Hgb 16.0 H Hct 48.3 H Plt Count Lymph % (Auto) [place] % (Auto) Lymph # (Auto) Seg Neutrophils % D-Dimer Sodium 146 H Potassium 5.1 H Chloride 108.2 H Creatinine 0.6 L 0.6 L Glucose 170 H 185 H Ferritin AST 83 H ALT 87 H Lactate Dehydrogenase Total Creatine Kinase C-Reactive Protein Albumin 3.0 L Coronavirus (PCR) 05/21/21 05/21/21 04:36 04:36 RBC Hgb Hct Plt Count Lymph % (Auto) [place] % (Auto) Lymph # (Auto) Seg Neutrophils % D-Dimer 8906.38 H Sodium Potassium Chloride Creatinine Glucose Ferritin AST ALT Lactate Dehydrogenase Total Creatine Kinase C-Reactive Protein 11.30 H Albumin Coronavirus (PCR)
[2021-05-21] MEDS ORDERED: D5W/0.9% NACL 1,000 ML IV SCH (15:00)
--- NOTE | 2021-05-21 15:23 | Progress Note ---
Assessment and Plan --Severe COVID-19 virus infection Contact and droplet isolation, dexamethasone 8 mg IV daily. Completed remdesivir per protocol,check inflammatory markers Patient is on BiPAP/100% FiO2 Wean as tolerated, home O2 evaluation prior to discharge Prone position as needed, follow pulmonary evaluation ID recommended Actemra pending Patient is critically ill with very poor prognosis -- Acute respiratory failure with severe hypoxia patient is on bipap requiring 40 L/100% FiO2 Continue high-dose dexamethasone 8 mg IV daily per ID Continue DuoNeb by nebulizer every 4 hours. Prone position as much as possible Consider transferring to [facility] for close observation if no improvement Pulmonary following, patient is critically ill with very poor prognosis Critical care time 45 minutes The high probability of a clinically significant, sudden or life threatening deterioration of the [pulmonary, endocrine, and metabolic] system(s) required my full and direct attention, intervention and personal management. The aggregate critical care time was [45] minutes. This time is in addition to time spent performing reported procedures but includes the following: [x] Data Review and interpretation [x] Patient assessment and monitoring of vital signs [x] Documentation [x] Medication orders and management --Bilateral pneumonia Possible community-acquired pneumonia versus Covid pneumonia s/p Empiric antibiotics Rocephin and Zithromax, DC due to normal procalcitonin levels --Elevated D-dimers; worsening D-dimers CTA chest negative for PE Lower extremity venous Doppler negative for DVT However due to increase oxygen requirement and severe hypoxemia Will treat with empiric therapeutic Lovenox Closely monitor, I checked with the pharmacy -- Hypertension/moderate control Continue current antihypertensives As needed hydralazine --Obesity; BMI 38.4 Patient needs diet modification, lifestyle changes, exercise as tolerated and weight reduction When medically stable --DVT prophylaxis; Subcu Heparin 5000 units subcu every 8 hours . 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 and appreciated Plan of care reviewed with the patient and his nurse Brief history and daily hospital course: 74-year-old -Gambian male patient was admitted with shortness of breath, hypoxic respiratory failure Requiring supplemental oxygen, high suspicion for COVID-19: A PCR test is pending 05/14/2021; Follow springer PCR test 38 oxygen to more than 90% Wean as toleratedID following Consider pulmonary evaluation if needed 05/15/2021; Patient tested positive for COVID-19 Increased dose of dexamethasone to 8 mg, remdesivir per protocol Worsening D-dimers, negative PE, negative DVT Sudden increased requirement of oxygen 40 L high flow nasal cannula 100% FiO2 I discussed with pharmacist, will start therapeutic dose of Lovenox 05/16/2021; Patient is severely hypoxemic requiring HFNC oxygen 40 L/100%/O2 sats 92 We will consult pulmonary, poor prognosis 05/17/2021; patient is on BiPAP with 100% FiO2 Severely hypoxemic, follow pulmonary evaluation Consider transfer to [facility] for close observation 05/18/2021; Poor prognosis, follow pulmonary recommendations ID recommended Actemra, pending Patient is critically ill with poor prognosis Requiring continuous BiPAP 100% FiO2 05/19/2021; Patient is on high flow nasal cannula oxygen 40 L/100% FiO2/93% O2 sats Critically ill very poor prognosis, wean as tolerated Follow ID and pulmonary recommendations Critically ill, poor prognosis 05/20/21: Remains on high flow nasal cannula O2, poor prognosis. cont supportive care. pulmonary and ID following 05/21/21: placed on continuous bipap, restrained, poor prognosis . Subjective Date of service: 05/21/21 Interval history: patent seen and examined at the bedside Patient's chart and medications reviewed patient remains on BiPAP 100% FiO2 Mild distress, severely hypoxemic Discussed with RN at the bedside Objective - Exam Narrative Exam: General appearance: Present: mild distress, well-nourished, obese, other (On BiPAP) - EENT Eyes: Present: PERRL, EOM intact - Neck Neck: Present: supple, normal ROM - Respiratory Respiratory effort: normal Respiratory: bilateral: diminished, rhonchi, negative: rales, wheezing - Cardiovascular Rhythm: regular Heart Sounds: Present: S1 & S2 - Extremities Extremities: no ischemia, No edema - Abdominal General gastrointestinal: soft, non-tender, non-distended, normal bowel sounds - Integumentary Integumentary: Present: clear, warm - Psychiatric Psychiatric: cooperative - Neurologic Neurologic: moves all extremities - Constitutional Vitals: Vital Signs - 12hr 05/21/21 05/21/21 05/21/21 05:37 09:00 09:34 Temperature 98.1 F Pulse Rate 102 H Respiratory 34 H 24 Rate Blood Pressure 169/123 142/99 O2 Sat by Pulse 92 93 Oximetry 05/21/21 11:11 Temperature 99.0 F Pulse Rate 110 H Respiratory 24 Rate Blood Pressure 139/93 O2 Sat by Pulse 92 Oximetry - Labs CBC & Chem 7: 05/20/21 10:23 05/20/21 10:23 Labs: Abnormal lab results 05/21/21 05/21/21 Range/Units 04:36 04:36 D-Dimer 8906.38 H (0-234) ng/mlDDU C-Reactive Protein 11.30 H (0.00-1.30) mg/dL HEART Score - HEART Score Troponin: Troponin T < 0.010 ng/mL (0.00-0.029) 05/13/21 19:28
[2021-05-21] MEDS: LORazepam 2 MG/ML VIAL IV PRN ×2 (15:39→20:38)
[2021-05-21] MEDS: ONDANSETRON 4 MG/2 ML INJ IV PRN (22:01)
[2021-05-22] MEDS: LORazepam 2 MG/ML VIAL IV PRN ×2 (02:20→09:47)
[2021-05-22] MEDS: HYDROmorphone 1 MG/1 ML INJ IV PRN ×2 (04:51→14:01)
[2021-05-22] MEDS: hydrALAZINE 25 MG TAB PO SCH ×3 (05:09→21:01)
[2021-05-22 06:05] VITALS: BP 129/84
[2021-05-22] MEDS: dexAMETHasone 4 MG/ML VIAL IV SCH (09:47)
[2021-05-22] MEDS: FAMOTIDINE 20 MG TAB PO SCH ×2 (09:47→21:02)
[2021-05-22] MEDS: amLODIPine 10 MG TAB PO SCH (09:47)
[2021-05-22] MEDS: ENOXAPARIN 120 MG/0.8 ML INJ SUB-Q SCH ×2 (11:00→21:02)
--- NOTE | 2021-05-22 13:26 | Progress Note ---
Assessment and Plan 71 y/o male with acute respiratory failure, worsening secondary to COVID pneumonia. 05/22/21: Bipap used but had to increase IPAP to 25 from 20. Not sure what happened to steroids but suggest restarting them as it has not been 10 days. Would consider lasix therapy to see if this helps with oxygen requirement. Very guarded to poor prognosis. Prone if able. 05/21/21: Continue Bipap QHS and HFNC during the day. Please consider the other recs, will defer to primary team. 05/20/21: Same recs as on initial consult. Prone, bP control, consider increasing steroids as listed below, consider lasix. Very very guarded prognosis. 05/19/21: Same recommendations as before. Guarded prognosis. Remains positive fluid almodovar. Needs better BP control 05/18/21: no new recommendations, same as yesterday. Very guarded prognosis. 1. Suggest increasing steroids to even higher doses given increasing oxygen requirement. Would recommend Solumedrol 125 mg IV q8 hours 2. Agree with Remdesivir and Actemra therapy 3. Suggest prone as much as possible during the day and sleep prone at night, maybe difficult to do now that on bipap therapy 4. Daily net negative state, so would limit volume and use lasix as needed to achieve this. 5. Monitor for chest pain or signs of cardiac instability. Have been seeing patients have [place] even on full dose anticoagulation secondary to COVID 6. Guarded prognosis, given worsening oxygen requirement and obesity 7. Blood pressure control per primary team Subjective Date of service: 05/22/21 Interval history: Dex has fallen off oct. Still on HFNC and NRB with marginal sats. Objective Vital Signs - 12hr 05/22/21 05/22/21 05/22/21 03:50 03:56 04:04 Temperature 97.0 F L Pulse Rate 73 108 H Respiratory 22 Rate Blood Pressure 146/115 153/91 O2 Sat by Pulse 78 L 93 Oximetry 05/22/21 05/22/21 05/22/21 05:04 06:02 08:22 Temperature Pulse Rate 74 Respiratory Rate Blood Pressure 129/84 O2 Sat by Pulse 93 93 Oximetry 05/22/21 09:47 Temperature Pulse Rate Respiratory Rate Blood Pressure 129/84 O2 Sat by Pulse Oximetry CBC and BMP: 05/20/21 10:23 05/20/21 10:23 ABG, PT/INR, D-dimer: PT/INR, D-dimer PT 13.3 Sec. (12.2-14.9) 05/13/21 19:28 INR 0.96 (0.87-1.13) 05/13/21 19:28 D-Dimer 8906.38 ng/mlDDU (0-234) H 05/21/21 04:36 Abnormal lab findings: Abnormal Labs 05/13/21 05/13/21 05/13/21 19:28 19:28 19:28 RBC 5.08 H Hgb Hct Plt Count 109 L Lymph % (Auto) 11.1 L [place] % (Auto) 12.5 H Lymph # (Auto) 0.5 L Seg Neutrophils % 76.1 H D-Dimer 966.69 H Sodium 134 L Potassium Chloride 97.9 L Creatinine Glucose 132 H Ferritin AST 102 H ALT 82 H Lactate Dehydrogenase 500 H Total Creatine Kinase 312 H C-Reactive Protein 9.50 H Albumin 3.4 L Coronavirus (PCR) 05/13/21 05/14/21 05/14/21 19:28 04:14 08:30 RBC Hgb Hct Plt Count Lymph % (Auto) [place] % (Auto) Lymph # (Auto) Seg Neutrophils % D-Dimer Sodium Potassium 3.5 L Chloride Creatinine Glucose 133 H Ferritin 1812.0 H AST ALT Lactate Dehydrogenase Total Creatine Kinase C-Reactive Protein Albumin Coronavirus (PCR) Positive A 05/14/21 05/15/21 05/15/21 19:58 07:08 15:25 RBC Hgb Hct Plt Count Lymph % (Auto) Brule % (Auto) Lymph # (Auto) Seg Neutrophils % D-Dimer 1990.62 H Sodium 133 L Potassium Chloride 97.1 L Creatinine 0.7 L 0.7 L Glucose 316 H 190 H Ferritin AST 117 H 89 H ALT 111 H 97 H Lactate Dehydrogenase Total Creatine Kinase C-Reactive Protein Albumin 3.0 L 3.2 L Coronavirus (PCR) 05/15/21 05/15/21 05/16/21 15:25 15:25 18:06 RBC Hgb Hct Plt Count Lymph % (Auto) [place]le % (Auto) Lymph # (Auto) Seg Neutrophils % D-Dimer Sodium Potassium 5.6 H D Chloride Creatinine 0.7 L Glucose 235 H Ferritin 2398.0 H AST 57 H ALT 75 H Lactate Dehydrogenase 705 H Total Creatine Kinase C-Reactive Protein 10.50 H Albumin 2.9 L Coronavirus (PCR) 05/17/21 05/20/21 05/20/21 06:58 10:23 10:23 RBC 5.67 H Hgb 16.0 H Hct 48.3 H Plt Count Lymph % (Auto) [place] % (Auto) Lymph # (Auto) Seg Neutrophils % D-Dimer Sodium 146 H Potassium 5.1 H Chloride 108.2 H Creatinine 0.6 L 0.6 L Glucose 170 H 185 H Ferritin AST 83 H ALT 87 H Lactate Dehydrogenase Total Creatine Kinase C-Reactive Protein Albumin 3.0 L Coronavirus (PCR) 05/21/21 05/21/21 04:36 04:36 RBC Hgb Hct Plt Count Lymph % (Auto) [place] % (Auto) Lymph # (Auto) Seg Neutrophils % D-Dimer 8906.38 H Sodium Potassium Chloride Creatinine Glucose Ferritin AST ALT Lactate Dehydrogenase Total Creatine Kinase C-Reactive Protein 11.30 H Albumin Coronavirus (PCR)
--- NOTE | 2021-05-22 14:27 | Progress Note ---
Assessment and Plan Cultures: SARS CoV2 PCR positive Assessment: 71-year-old male with history of hypertension, obesity, admitted on 05/13/2021 secondary to 3-day history of cough, fever, chills, malaise, hiccups and shortness of breath, received first dose of Moderna vaccine on 05/09/2021: #Sepsis: secondary to bilateral pneumonia from COVID-19 #COVID-19 pneumonia: CXR with multifocal bilateral pneumonia. Infllammatory stella ers elevated. D-dimer 966. Ferritin 8012. CRP 9.5. #Acute hypoxemic respiratory failure: initially requiring Salter nasal cannula f/b HFNC/BiPAP. #Elevated LFTs: from COVID Recommendations: -Received Actemra on 05/21/2021 -Completed 10 days of Decadron (05/13 to 05/22/2021), extended by 4 more days. Benefit beyond 10-14 days is unclear especially given Actemra use as well and would increase risk of nosocomial infections. -completed IV remdesivir -Continue anticoagulation per System Protocol -extremely poor prognosis Quincy Miller MD, FACP [facility] ([facility] O: [phone] F: [phone] Subjective Date of service: 05/22/21 Interval history: No fever. Remains on high flow nasal cannula/BiPAP. Objective - Exam Narrative Exam: Physical Exam (reviewed in chart to minimize risk of transmission) Constitutional: deferred Head, Ears, Nose: deferred Eyes: deferred Neck: deferred Oral: deferred Cardiovascular: deferred Respiratory: deferred GI: deferred Musculoskeletal: deferred Skin: deferred Hem/Lymphatic: deferred Psych: deferred Neurological: deferred - Constitutional Vitals: Vital Signs Temp Pulse Resp BP Pulse Ox 97.0 F L 74 22 129/84 93 05/22/21 03:50 05/22/21 05:04 05/22/21 03:50 05/22/21 14:08 05/22/21 14:11 Temperature -Last 24 Hours Temperature 97.0 F Temperature 97.9 F Temperature 98.3 F Temperature 98.3 F - Labs CBC & Chem 7: 05/20/21 10:23 05/20/21 10:23
--- NOTE | 2021-05-22 15:28 | Progress Note ---
Assessment and Plan --Severe COVID-19 virus infection Contact and droplet isolation, dexamethasone 8 mg IV daily. Completed remdesivir per protocol,check inflammatory markers Patient is on high flow and intermittent BiPAP/100% FiO2 Wean as tolerated, home O2 evaluation prior to discharge Prone position as needed, follow pulmonary evaluation ID recommended Actemra pending Patient is critically ill with very poor prognosis -- Acute respiratory failure with severe hypoxia patient is requiring 40 L/100% FiO2, intermittent bipap Continue high-dose dexamethasone 8 mg IV daily per ID Continue DuoNeb by nebulizer every 4 hours. Prone position as much as possible Consider transferring to [facility] for close observation if no improvement Pulmonary following, patient is critically ill with very poor prognosis Critical care time 45 minutes The high probability of a clinically significant, sudden or life threatening deterioration of the [pulmonary, endocrine, and metabolic] system(s) required my full and direct attention, intervention and personal management. The aggregate critical care time was [45] minutes. This time is in addition to time spent per forming reported procedures but includes the following: [x] Data Review and interpretation [x] Patient assessment and monitoring of vital signs [x] Documentation [x] Medication orders and management --Bilateral pneumonia Possible community-acquired pneumonia versus Covid pneumonia s/p Empiric antibiotics Rocephin and Zithromax, DC due to normal procalcitonin levels --Elevated D-dimers; worsening D-dimers CTA chest negative for PE Lower extremity venous Doppler negative for DVT However due to increase oxygen requirement and severe hypoxemia Will treat with empiric therapeutic Lovenox Closely monitor -- Hypertension/moderate control Continue current antihypertensives As needed hydralazine and clonidine --Obesity; BMI 38.4 Patient needs diet modification, lifestyle changes, exercise as tolerated and weight reduction When medically stable --DVT prophylaxis; Subcu Heparin 5000 units subcu every 8 hours . We will closely monitor the patient and adjust management as needed Brain Surgeon recommendations noted and appreciated Plan of care reviewed with the patient and his nurse Brief history and daily hospital course: 74-year-old -[place] male patient was admitted with shortness of breath, hypoxic respiratory failure Requiring supplemental oxygen, high suspicion for COVID-19: A PCR test is pending 05/14/2021; Follow springer PCR test 38 oxygen to more than 90% Wean as toleratedID following Consider pulmonary evaluation if needed 05/15/2021; Patient tested positive for COVID-19 Increased dose of dexamethasone to 8 mg, remdesivir per protocol Worsening D-dimers, negative PE, negative DVT Sudden increased requirement of oxygen 40 L high flow nasal cannula 100% FiO2 I discussed with pharmacist, will start therapeutic dose of Lovenox 05/16/2021; Patient is severely hypoxemic requiring HFNC oxygen 40 L/100%/O2 sats 92 We will consult pulmonary, poor prognosis 05/17/2021; patient is on BiPAP with 100% FiO2 Severely hypoxemic, follow pulmonary evaluation Consider transfer to [facility] for close observation 05/18/2021; Poor prognosis, follow pulmonary recommendations ID recommended Actemra, pending Patient is critically ill with poor prognosis Requiring continuous BiPAP 100% FiO2 05/19/2021; Patient is on high flow nasal cannula oxygen 40 L/100% FiO2/93% O2 sats Critically ill very poor prognosis, wean as tolerated Follow ID and pulmonary recommendations Critically ill, poor prognosis 05/20/21: Remains on high flow nasal cannula O2, poor prognosis. cont supportive care. pulmonary and ID following 05/21/21: placed on bipap, restrained, poor prognosis 05/22/21: patient on high flow O2 along with NRB, placed on restraint along with as needed morphin and ativan Subjective Date of service: 05/22/21 Interval history: patent seen and examined at the bedside Patient's chart and medications reviewed patient remains on 100% FiO2 Mild distress, severely hypoxemic Discussed with RN at the bedside Objective - Exam Narrative Exam: General appearance: Present: mild distress, well-nourished, obese, - EENT Eyes: Present: PERRL, EOM intact - Neck Neck: Present: supple, normal ROM - Respiratory Respiratory effort: normal Respiratory: bilateral: diminished, rhonchi, negative: rales, wheezing - Cardiovascular Rhythm: regular Heart Sounds: Present: S1 & S2 - Extremities Extremities: no ischemia, No edema - Abdominal General gastrointestinal: soft, non-tender, non-distended, normal bowel sounds - Integumentary Integumentary: Present: clear, warm - Psychiatric Psychiatric: cooperative - Neurologic Neurologic: moves all extremities - Constitutional Vitals: Vital Signs - 12hr 05/22/21 05/22/21 05/22/21 03:50 03:56 04:04 Temperature 97.0 F L Pulse Rate 73 108 H Respiratory 22 Rate Blood Pressure 146/115 153/91 O2 Sat by Pulse 78 L 93 Oximetry 05/22/21 05/22/21 05/22/21 05:04 06:02 08:22 Temperature Pulse Rate 74 Respiratory Rate Blood Pressure 129/84 O2 Sat by Pulse 93 93 Oximetry 05/22/21 05/22/21 05/22/21 09:47 14:08 14:11 Temperature Pulse Rate Respiratory Rate Blood Pressure 129/84 129/84 O2 Sat by Pulse 93 Oximetry - Labs CBC & Chem 7: 05/20/21 10:23 05/20/21 10:23 HEART Score - HEART Score Troponin: Troponin T < 0.010 ng/mL (0.00-0.029) 05/13/21 19:28
[2021-05-22] MEDS ORDERED: AMIODARONE 150 MG/3 ML INJ IV ONE (18:20)
[2021-05-22] MEDS ORDERED: SODIUM BICARB 8.4% 50 MEQ/50 ML SYRINGE IV ONE (18:20)
[2021-05-22] MEDS ORDERED: EPINEPHrine 1 MG/10 ML SYRINGE ONE (18:20)
[2021-05-22] MEDS ORDERED: LIDOCAINE PF 100 MG/5 ML (CARDIAC SYRINGE) IV ONE (18:20)
--- NOTE | 2021-05-22 18:42 | Procedure Note ---
Date of procedure: 05/22/21 Pre-op diagnosis: Respiratory failure Post-op diagnosis: same Procedure: The patient was evaluated in the emergency department for symptoms described in the history of present illness. He/she was evaluated in the context of the global COVID-19 pandemic, which necessitated consideration that the patient might be at risk for infection with the virus that causes COVID-19. Institutional protocols and algorithms that pertain to the evaluation of patients at risk for COVID-19 are in a state of rapid change based on information released by regulatory bodies including the CDC and federal and state organizations. These policies and algorithms were followed during the patient's care in the emergency department. Please note that these policies, procedures and recommendations changed on a rapid basis. During the entire patient encounter, I had on complete personal protective equipment. Emergency room responding to [employer] called overhead, patient in room 372. This provider arrived to this patient's room, where he is found to have a GCS of 3, is receiving [id number] ventilation, and CPR and ACLS resuscitation directed by the hospitalist service. ER assistance is requested for definitive airway management. Patient receives [id number] ventilation, and without need for induction or paralytic agent, video laryngoscopy is performed with a curved S4 blade, and a 7.5 endotracheal tube is inserted in the trachea under direct guidance. The tube passes through the trachea under direct visualization, has equal chest rise postplacement, and appropriate end-tidal capnography color change. The commercial airline pilot balloon is also inflated, and secured by the respiratory therapist. Patient still pulseless, with hospital medicine directing CPR and resuscitation. If this patient has return of spontaneous circulation, we will defer post intubation management and diagnostic/therapeutic to the inpatient team. Prognosis is poor at this time. Anesthesia: none Surgeon: THAO LYONS Estimated blood loss: none Pathology: none Specimen disposition: to lab Condition: critical Disposition: no change
--- NOTE | 2021-05-22 19:41 | Event Note ---
Date: 05/22/21 A CODE JANUARY was called. I presented to the bedside and the patient was found to be in asystolic arrest. The patient was subsequently intubated and treated in accordance with ACLS protocol. Patient did not regain a perfusing cardiac rhythm and was found to have asystole on senior quality analyst. On physical exam the patient was found to have absent heartbeat without perfusing cardiac rhythm on senior quality analyst. Neurologic exam the patient was found to have pupils that were fixed and dilated with absence of brainstem reflexes. The patient was found to have absent lung sounds. The patient was pronounced at 1835 hrs.
--- NOTE | 2021-05-22 19:42 | Death Note ---
Note Date of : 05/22/21 Time of : 18:00 Time Pronounced: 18:35
--- NOTE | 2021-05-22 19:47 | Death Summary ---
Summary - Providers Consults: 05/13/21 22:39 Consult to Physician [CONS] Routine Comment: Consulting Provider: JEANA LARA Physician Instructions: Reason For Exam: covid 05/14/21 16:41 Consult to Dietitian/Nutrition [CONS] Routine Physician Instructions: Reason For Exam: Reason for Consult: Poor oral intake 05/16/21 12:29 Consult to Physician [CONS] Routine Comment: Consulting Provider: CHIARA MALDONADO Physician Instructions: Reason For Exam: COVID-19/severe hypoxia/high flow nasal cannula ox 05/20/21 11:56 Physical Therapy Evaluation and Treat [CONS] Stat Comment: Reason For Exam: eval and treat Attending: SIMON ORONA - summary Date of admission: 05/13/21 22:39 Date of : 05/22/21 Significant findings: Cause of : Cardiopulmonary arrest due to acute hypoxic respiratory failure, severe sepsis, severe COVID 19 PNA. Brief history and daily hospital course: 74-year-old -[place] male patient was admitted with shortness of breath, hypoxic respiratory failure Requiring supplemental oxygen, high suspicion for COVID-19: 05/14/2021; Follow springer PCR test 38 oxygen to more than 90% Wean as toleratedID following Consider pulmonary evaluation if needed 05/15/2021; Patient tested positive for COVID-19 Increased dose of dexamethasone to 8 mg, remdesivir per protocol Worsening D-dimers, negative PE, negative DVT Sudden increased requirement of oxygen 40 L high flow nasal cannula 100% FiO2 I discussed with pharmacist, will start therapeutic dose of Lovenox 05/16/2021; Patient is severely hypoxemic requiring HFNC oxygen 40 L/100%/O2 sats 92 We will consult pulmonary, poor prognosis 05/17/2021; patient is on BiPAP with 100% FiO2 Severely hypoxemic, follow pulmonary evaluation Consider transfer to [facility] for close observation 05/18/2021; Poor prognosis, follow pulmonary recommendations ID recommended Actemra, pending Patient is critically ill with poor prognosis Requiring continuous BiPAP 100% FiO2 05/19/2021; Patient is on high flow nasal cannula oxygen 40 L/100% FiO2/93% O2 sats Critically ill very poor prognosis, wean as tolerated Follow ID and pulmonary recommendations Critically ill, poor prognosis 05/20/21: Remains on high flow nasal cannula O2, poor prognosis. cont supportive care. pulmonary and ID following 05/21/21: placed on bipap, restrained, poor prognosis 05/22/21: Patient on high flow O2 along with NRB, placed on restraint along with as needed morphin and ativan. A CODE BLUE was called. the patient was found to be in asystolic arrest. The patient was subsequently intubated and treated in accordance with ACLS protocol. Patient did not regain a perfusing cardiac rhythm and was found to have asystole on school bus monitor. On physical exam the patient was found to have absent heartbeat without perfusing cardiac rhythm on school bus monitor. Neurologic exam the patient was found to have pupils that were fixed and dilated with absence of brainstem reflexes. The patient was found to have absent lung sounds. The patient was pronounced at 1835 hrs. referring to code sheet for details.
[2021-05-23] MEDS ORDERED: dexAMETHasone 4 MG/ML VIAL IV SCH (10:00)
== END 2021-05-22 22:20 | DRG 871 ==
LOC: ED 18:33 → 3A 22:39 → UNDODISIN 05-22 18:35
PROVIDERS: ADMIT Hospitalist; ATTEND Internal Medicine
PROC: XW033E5 Introduction of Remdesivir Anti-infective into Peripheral Vein, Percutaneous Approach, New Technology Group 5 (ICD-10-PCS; 2021-05-14)
PROC: 5A0945A Assistance with Respiratory Ventilation, 24-96 Consecutive Hours, High Flow/Velocity Cannula (ICD-10-PCS; 2021-05-15)
PROC: 5A09457 Assistance with Respiratory Ventilation, 24-96 Consecutive Hours, Continuous Positive Airway Pressure (ICD-10-PCS; principal; 2021-05-16)
PROC: XW033H5 Introduction of Tocilizumab into Peripheral Vein, Percutaneous Approach, New Technology Group 5 (ICD-10-PCS; 2021-05-21)
PROC: 5A12012 Performance of Cardiac Output, Single, Manual (ICD-10-PCS; 2021-05-22)
PROC: 0BH17EZ Insertion of Endotracheal Airway into Trachea, Via Natural or Artificial Opening (ICD-10-PCS; 2021-05-22)
DX: A41.89 Other specified sepsis (principal); U07.1 COVID-19; J96.01 Acute respiratory failure with hypoxia; J12.82 Pneumonia due to coronavirus disease 2019; E66.9 Obesity, unspecified; Z68.38 Body mass index [BMI] 38.0-38.9, adult; Z86.79 Personal history of other diseases of the circulatory system; I10 Essential (primary) hypertension; I46.9 Cardiac arrest, cause unspecified
CPT/HCPCS: 36415; 71046; 71275; 80048; 80053; 82140; 82550; 82728; 82962; 83615; 83735; 84145; 84484; 85025; 85027; 85379; 85610; 86140; 93970; 94660; 94760; G0378; J0171; J0282; J0360; J0456; J0696; J1100; J1170; J1644; J1650; J2001; J2060; J2270; J2405; J3262; J7030; J7042; J7050; Q0161; Q9967; U0003